=== PATIENT | female | born 1970 | race Caucasian/White ===

== ENCOUNTER 2022-05-19 11:04 | Outpatient (CLI) | payer OTHER, SELFPAY ==
--- NOTE | 2022-05-19 11:30 | CRLHL7_ITS ---
For Patients: As a result of the Century Cures Act, medical imaging exams and procedure reports are released immediately into your electronic medical record. You may view this report before your referring provider. If you have questions, please contact your health care provider. BILATERAL SCREENING MAMMOGRAM WITH COMPUTER-AIDED DETECTION AND TOMOSYNTHESIS TECHNIQUE: CC and MLO views were obtained. These mammographic images have been obtained using full-field digital technique. These mammographic images were interpreted with the benefit of computer-aided detection. Breast Tomosynthesis was used in this interpretation. COMPARISON FILM: 07/30/2020, 05/05/2016, 08/06/2014. FINDINGS: There are scattered areas of fibroglandular density IMPRESSION: There is no radiographic evidence for malignancy. ASSESSMENT: BI-RADS Category 1: Negative RECOMMENDATION: Routine screening mammogram in 1 year. A lay language report of this examination will be provided to the patient. Jerman Banda M.D. Diagnostic Radiologist [email or web address] CORRIE/sakina presley/Dictated by: Jerman Banda MD @ 05/19/2022 12:20:00 PM (Electronically Signed)
== END 2022-05-19 11:05 | disposition home or self-care (01) ==
LOC: MAMMO 11:06
PROVIDERS: Visit Provider Family Medicine
DX: Z12.31 Encounter for screening mammogram for malignant neoplasm of breast (principal)
CPT/HCPCS: 77063; 77067

== ENCOUNTER 2023-08-12 07:50 | Outpatient (CLI) | payer MEDICAID, SELFPAY ==
--- NOTE | 2023-08-12 08:34 | W.ANESCHARGE ---
Anesthesia Charges Start Date/Time Anesthesia Start Date: 08/12/23 Anesthesia Start Time: 08:25 Stop Date/Time Anesthesia Stop Date: 08/12/23 Anesthesia Stop Time: 08:49
--- NOTE | 2023-08-12 08:52 | W.ANESCHARGE ---
Anesthesia Charges Start Date/Time Anesthesia Start Date: 08/12/23 Anesthesia Start Time: 08:25 Stop Date/Time Anesthesia Stop Date: 08/12/23 Anesthesia Stop Time: 08:49
== END 2023-08-12 07:51 | disposition home or self-care (01) ==
LOC: OP CLINIC 07:50
PROVIDERS: PCP Family Medicine; Visit Provider Internal Medicine
DX: Z12.11 Encounter for screening for malignant neoplasm of colon (principal)
CPT/HCPCS: 00811; 00812; 45378; J2405; J2704

== ENCOUNTER 2023-09-26 08:14 | Outpatient (CLI) | payer MEDICAID, SELFPAY | END 2023-09-26 08:15 | disposition home or self-care (01) | LOC: NFLDREF 09-27 10:31 | PROVIDERS: PCP Family Medicine; Referring Provider Family Medicine; Visit Provider Family Medicine | DX: Z00.00 Encounter for general adult medical examination without abnormal findings (principal); Z13.6 Encounter for screening for cardiovascular disorders | CPT/HCPCS: 80053; 80061 ==

== ENCOUNTER 2024-02-01 18:01 | Outpatient (CLI) | payer MEDICAID, SELFPAY ==
--- OUTSIDE RECORDS SUMMARY | 2024-02-01 18:02 | XMS_ITS | Clinical Summary ---
Author Name Unknown Organization [employer] [facility] Address [place], [place] [address] Care Team Providers Care Telecommunications Administrator Name Role Phone Sasha Rodriguez MD Primary Care Provider +1- [phone] Allergies No known active allergies Medications Medication Sig Dispensed Refills Start Date End Date Status buPROPion (WELLBUTRIN XL) 300 mg Extended-Release tablet Take 300 mg by mouth once daily. Active estradioL (ESTRACE) 0.01% (0.1 mg/g) vaginal creamIndications:Cys tocele with prolapse Pea size on a finger to the vagina at bedtime for one month 42 g 07/22/2021 Active acetaminophen-codein e (TYLENOL #3) 300-30 mg per tabletIndications:Cy stocele with prolapse Take 1 Tablet by mouth every 6 hours if needed for Pain. Max acetaminophen dose: 4000mg in 24 hrs. 10 Tablet 2021 Active ondansetron (ZOFRAN ODT) 8 mg disintegrating tabletIndications:Cy stocele with prolapse Place 1 Tablet (8 mg) on the tongue every 8 hours if needed for Nausea/Vomiting. 8 Tablet 2021 Active Active Problems Problem Noted Date Diagnosed Date Cystocele with prolapse 2021 Lateral epicondylitis 08/16/2014 Possible seronegative RA 07/19/2014 Herniated cervical disc, C5-6 and C6-7. 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 Von Willebrand's disease 03/22/2012 Overview: Type I Fibroids 03/22/2012 Immunizations Name Administration Dates Next Due Influenza RIV4 (Age 18+ Years) PRESERV FREE 06/18 Influenza, IIV3 (Age 6-35 mos) 08/08/2014 Influenza, IIV4 08/06/2020 Pneumococcal Poly,23-Valent (Pneumovax) 08/08/20 14 Tdap 07/15/2021,05/22/2009 Family History Medical History Relation Name Comments Anorexia nervosa Daughter Diabetes Maternal Grandfather Stroke Maternal Grandfather Heart Disease Maternal Grandmother Cancer-ovarian Mother Cervical cancer Mother Depression Mother Heart Disease Mother Hypertension Mother Other Other marfans - grand father Cancer-colon Paternal Grandmother Relation Name Status Comments Daughter Maternal Grandfather Maternal Grandmother Mother Other Paternal Grandmother Social History Tobacco Use Types Packs/Day Years Used Date Smoking Tobacco: Never Smokeless Tobacco: Never Tobacco Cessation:Counseling Given: Yes Alcohol Use Standard Drinks/Week Comments Yes 0 (1 standard drink = 0.6 oz pur e alcohol) occassionally Social Connections Answer Date Recorded Frequency of Communication with Friends and Fami ly Not on file 10/17/2021 Financial Resource Strain Answer Date R ecorded Difficulty of Paying Living Expenses Not on file 10/17/2021 Difficulty of Paying Living Expenses Not on file 10/17/2021 Sex and Gender Information Value Date Recorded Sex Assigned at Not on file Gender Identity Not on file Sexual Orientation Not on file Obstetrics History Last Filed Vital Signs Vital Sign Reading Time Taken Comments Blood Pressure 124/83 09/28/2021 1:27 PM DESK REPRESENTATIVE Pulse 74 09/28/2021 1:27 PM DESK REPRESENTATIVE Temperature 37.3 ??C (99.2 ??F) 2021 3:30 PM CD T Respiratory Rate 16 2021 3:30 PM CDT Oxygen Saturation 99% 09/28/2021 1:27 PM DESK REPRESENTATIVE Inhaled Oxygen Concentration - - Weight 65.3 kg (144 lb) 09/28/2021 1:27 PM DESK REPRESENTATIVE Height 162.6 cm (5' 4) 07/22/2021 6:10 AM CDT Body Mass Index 24.72 07/22/2021 6:10 AM CDT Plan of Treatment Health Maintenance Due Date Last Done Comments Depression screening for age 12+ 1980 HIV for age 15-65 1983 BMI (ht and wt on same day) for age 18+ 1986 Hepatitis C screening for age 18-79 1986 Colonoscopy through age 75 2013 Lipids for age 45-75 2013 Mammogram for age 45-75 2013 Zoster (shingles) series for age 50+ (1 of 2) 2018 COVID-19 vaccine series (2022-24 season) 2023 02/25/2021, 02/04/2021 Influenza for age 50-64 06/17/2024 07/15/2021, 08/06 Pap test for age 21-65 09/30/2026 , 09/30/2023, 03/05/2021, Additional history exists Tetanus booster 07/15/2031 07/15/2021, 05/22/2009 Pneumococcal series for age 6-64 Aged Out 08/08/2014 No longer eligible based on patient's age to complete this topic Tdap Completed 07/15/2021, 05/22/2009 Medical Devices Implanted Type Area Drill Operator Pneumatic Device Identifier Shelf Expiration Date Model / Serial / Lot Mesh Pelvic 24x4cm Restorelle Y Prolapse - [id number] Implanted:Qty: 1 on 07/22/2021 by Augusta Christianson MD at [facility] N/A: Pelvis [employer] 07/21/2023 [id number] / / [id number] Description:See implant shee t Sling Pelvic Obtryx Ii Halo Continence - [id number] Implanted:Qty: 1 on 07/22/2021 by Augusta Christianson MD at [facility] N/A: Pelvis [facility] [place] [facility] [id number] / / [id number] Procedures Procedure Name Priority Date/Time Associated Diagnosis Comments HPV THIN PREP Routine 09/30/2023 1:30 PM DESK REPRESENTATIVE from Last 3 Months or Most Recently Relevant to Health Maintenance Results * HPV HIGH RISK (09/30/2023 1:30 PM DESK REPRESENTATIVE) TYPE 16 Negative Negative 10/11/2023 2:10 PM DESK REPRESENTATIVE [facility] TYPE 18 Negative Negative 10/11/2023 2:10 PM DESK REPRESENTATIVE [facility] OTHER HIGH RISK TYPES Negative Negative 10/11/2023 2:10 PM DESK REPRESENTATIVE [facility] Other (Cervical) 09/30/2023 1:30 PM DESK REPRESENTATIVE 10/06/2023 4:55 PM DESK REPRESENTATIVE Narrative [facility] - 10/11/2023 2:10 PM DESK REPRESENTATIVE HPV types 16, 18, 31, 33, 35, 39, 45, 51, 52, 56, 58, 59, 66 and 68 DNA were undetectable or below the pre-set threshold. Methodology: Moises Soila 4800 HPV Test Doctor Unknown [facility] [address] [place] [id number], from Last 3 Months or Most Recently Relevant to Health Maintenance Advance Directives * Full Code (Latest Code Status on File) Date Activated Date Inactivated Comments 07/22/2021 5:50 AM 2021 7:23 PM Question Answer Comments Code Status Discussion: Not Discussed * Full Code Date Activated Date Inactivated Comments 03/22/2012 11:08 AM 03/23/2012 4:00 PM * Full Code Date Activated Date Inactivated Comments 03/22/2012 6:05 AM 03/22/2012 11:08 AM Care Teams Telecommunications Administrator Relationship Specialty Start Date End Date Sasha Rodriguez MD [address] [place] [address] PCP - General Internal Medicine 12/13/03
== END 2024-02-01 18:02 | disposition home or self-care (01) ==
LOC: NFLDUCREF 18:01
PROVIDERS: PCP Family Medicine; Visit Provider Nurse Practitioner
DX: M62.830 Muscle spasm of back (principal)
CPT/HCPCS: 87086

== ENCOUNTER 2024-02-16 08:44 | Outpatient (CLI) | payer MEDICAID, SELFPAY ==
--- OUTSIDE RECORDS SUMMARY | 2024-02-16 08:47 | XMS_ITS | Clinical Summary ---
Author Name Unknown Organization [employer] [facility] Address [place], [place] [address] Care Team Providers Care Neurological Surgeon Name Role Phone Sasha Rodriguez MD Primary Care Provider +1- [phone] Allergies No known active allergies Medications Medication [...] Comments Blood Pressure 124/83 09/28/2021 1:27 PM VOCAL PERFORMER Pulse 74 09/28/2021 1:27 PM VOCAL PERFORMER Temperature 37.3 ??C (99.2 ??F) 2021 3:30 PM CD T Respiratory Rate 16 2021 3:30 PM CDT Oxygen Saturation 99% 09/28/2021 1:27 PM VOCAL PERFORMER Inhaled Oxygen Concentration - - Weight 65.3 kg (144 lb) 09/28/2021 1:27 PM VOCAL PERFORMER Height 162.6 cm (5' 4) 07/22/2021 6:10 [...] 07/15/2021, 05/22/2009 Medical Devices Implanted Type Area Addiction Professional Device Identifier Shelf Expiration Date Model / Serial / Lot Mesh Pelvic 24x4cm Restorelle Y Prolapse - [id number] Implanted:Qty: 1 on 07/22/2021 by Augusta Christianson MD at [facility] N/A: Pelvis [employer] 07/21/2023 [id number] / / [id number] Description:See implant shee t Sling Pelvic Obtryx Ii Halo Continence - [id number] Implanted:Qty: 1 on 07/22/2021 by Augusta Christianson MD at [facility] N/A: Pelvis [facility] [place] [facility] [id number] / / [id number] Procedures Procedure Name Priority Date/Time Associated Diagnosis Comments HPV THIN PREP Routine 09/30/2023 1:30 PM VOCAL PERFORMER from Last 3 Months or Most Recently Relevant to Health Maintenance Results * HPV HIGH RISK (09/30/2023 1:30 PM VOCAL PERFORMER) TYPE 16 Negative Negative 10/11/2023 2:10 PM VOCAL PERFORMER [facility] TYPE 18 Negative Negative 10/11/2023 2:10 PM VOCAL PERFORMER [facility] OTHER HIGH RISK TYPES Negative Negative 10/11/2023 2:10 PM VOCAL PERFORMER [facility] Other (Cervical) 09/30/2023 1:30 PM VOCAL PERFORMER 10/06/2023 4:55 PM VOCAL PERFORMER Narrative [facility] - 10/11/2023 2:10 PM VOCAL PERFORMER HPV types 16, 18, 31, 33, 35, 39, 45, 51, 52, 56, 58, 59, 66 and 68 DNA were undetectable or below the pre-set threshold. Methodology: Moises Soila 4800 HPV Test Doctor Unknown [facility] [address] [place] [id number], from Last 3 Months or Most Recently [...] 6:05 AM 03/22/2012 11:08 AM Care Teams Neurological Surgeon Relationship Specialty Start Date End Date Sasha Rodriguez MD [address] [place] [address] PCP - General Internal Medicine 12/13/03
== END 2024-02-16 08:45 | disposition home or self-care (01) ==
LOC: NFLDREF 08:45
PROVIDERS: PCP Family Medicine; Visit Provider Family Medicine
DX: N02.8 Recurrent and persistent hematuria with other morphologic changes (principal); M89.8X8 Other specified disorders of bone, other site
CPT/HCPCS: 80053; 87086

== ENCOUNTER 2024-04-06 10:00 | Outpatient (CLI) | payer OTHER, SELFPAY ==
--- OUTSIDE RECORDS SUMMARY | 2024-04-06 10:03 | XMS_ITS | Clinical Summary ---
Author Organization [employer] [facility] Address [place], [place] [address] Care Team Providers Care Animal Breeder Name Role Phone Sasha Rodriguez MD Primary Care Provider +1- [phone] Allergies No known active allergies Medications Medication [...] Comments Blood Pressure 124/83 09/28/2021 1:27 PM NUMBERER AND WIRER Pulse 74 09/28/2021 1:27 PM NUMBERER AND WIRER Temperature 37.3 ??C (99.2 ??F) 2021 3:30 PM CD T Respiratory Rate 16 2021 3:30 PM CDT Oxygen Saturation 99% 09/28/2021 1:27 PM NUMBERER AND WIRER Inhaled Oxygen Concentration - - Weight 65.3 kg (144 lb) 09/28/2021 1:27 PM NUMBERER AND WIRER Height 162.6 cm (5' 4) 07/22/2021 6:10 [...] (1 of 2) 2018 COVID-19 vaccine series (2022- season) 2023 02/25/2021, 02/04/2021 Influenza for age 50-64 06/17/2024 07/15/2021, 08/06 Pap test for age 21-65 09/30/2026 , 09/30/2023, 03/05/2021, Additional history exists Tetanus booster 07/15/2031 07/15/2021, 05/22/2009 Pneumococcal series for age 6-64 Aged Out 08/08/2014 No longer eligible based on patient's age to complete this topic Tdap Completed 07/15/2021, 05/22/2009 Medical Devices Implanted Type Area Sanding Machine Tender Device Identifier Shelf Expiration Date Model / Serial / Lot Mesh Pelvic 24x4cm Restorelle Y Prolapse - [id number] Implanted:Qty: 1 on 07/22/2021 by Augusta Christianson MD at [facility] N/A: Pelvis [employer] 07/21/2023 [id number] / / [id number] Description:See implant shee t Sling Pelvic Obtryx Ii Halo Continence - [id number] Implanted:Qty: 1 on 07/22/2021 by Augusta Christianson MD at [facility] N/A: Pelvis [facility] [place] [facility] [id number] / / [id number] Procedures Procedure Name Priority Date/Time Associated Diagnosis Comments HPV THIN PREP Routine 09/30/2023 1:30 PM NUMBERER AND WIRER from Last 3 Months or Most Recently Relevant to Health Maintenance Results * HPV HIGH RISK (09/30/2023 1:30 PM NUMBERER AND WIRER) TYPE 16 Negative Negative 10/11/2023 2:10 PM NUMBERER AND WIRER [facility] TYPE 18 Negative Negative 10/11/2023 2:10 PM NUMBERER AND WIRER [facility] OTHER HIGH RISK TYPES Negative Negative 10/11/2023 2:10 PM NUMBERER AND WIRER [facility] Other (Cervical) 09/30/2023 1:30 PM NUMBERER AND WIRER 10/06/2023 4:55 PM NUMBERER AND WIRER Narrative [facility] - 10/11/2023 2:10 PM NUMBERER AND WIRER HPV types 16, 18, 31, 33, 35, 39, 45, 51, 52, 56, 58, 59, 66 and 68 DNA were undetectable or below the pre-set threshold. Methodology: Moises Soila 4800 HPV Test Doctor Unknown [facility] [address] [place] [id number], from Last 3 Months or Most Recently [...] 6:05 AM 03/22/2012 11:08 AM Care Teams Animal Breeder Relationship Specialty Start Date End Date Sasha Rodriguez MD [address] [place] [id number] PCP - General Internal Medicine 12/13/03
[2024-04-06 10:05] LABS: Appearance Urine Clear (Clear); Bilirubin Urine Negative (Negative); Blood Urine Trace-intact (Negative); Color Urine Yellow (Yellow); Glucose Urine Negative (Negative); Ketones Urine Negative (Negative); Leukocyte Esterase Urine Negative (Negative); Nitrite Urine Negative (Negative); Protein Urine Negative (Negative); Urobilinogen Urine 0.2 (0.2-1.0)
[2024-04-06 10:08] LABS: RBC Urine 0-2 (0-2); Squamous Epithelial Cell Urine Few (None-Few); WBC Urine 0-2 (0-5)
== END 2024-04-06 10:01 | disposition home or self-care (01) ==
PROVIDERS: PCP Family Medicine; Visit Provider Obstetrics & Gynecology
DX: R10.2 Pelvic and perineal pain (principal)
CPT/HCPCS: 81001; 84443; 87086

== ENCOUNTER 2024-04-13 08:32 | Outpatient (CLI) | payer OTHER, SELFPAY ==
--- OUTSIDE RECORDS SUMMARY | 2024-04-13 08:35 | XMS_ITS | Clinical Summary ---
Author Organization [employer] [facility] Address [place], [place] [address] Care Team Providers Care Veterinary Technician Assistant Name Role Phone Sasha Rodriguez MD Primary Care Provider [phone]- [phone] Allergies No known active allergies Medications Medication [...] Comments Blood Pressure 124/83 09/28/2021 1:27 PM CATALYST OPERATOR GASOLINE Pulse 74 09/28/2021 1:27 PM CATALYST OPERATOR GASOLINE Temperature 37.3 ??C (99.2 ??F) 2021 3:30 PM CD T Respiratory Rate 16 2021 3:30 PM CDT Oxygen Saturation 99% 09/28/2021 1:27 PM CATALYST OPERATOR GASOLINE Inhaled Oxygen Concentration - - Weight 65.3 kg (144 lb) 09/28/2021 1:27 PM CATALYST OPERATOR GASOLINE Height 162.6 cm (5' 4) 07/22/2021 6:10 [...] 07/15/2021, 05/22/2009 Medical Devices Implanted Type Area Wood Drilling Machine Operator Device Identifier Shelf Expiration Date Model / Serial / Lot Mesh Pelvic 24x4cm Restorelle Y Prolapse - [id number] Implanted:Qty: 1 on 07/22/2021 by Augusta Christianson MD at [facility] N/A: Pelvis [employer] 07/21/2023 [id number] / / [id number] Description:See implant shee t Sling Pelvic Obtryx Ii Halo Continence - [id number] Implanted:Qty: 1 on 07/22/2021 by Augusta Christianson MD at [facility] N/A: Pelvis [facility] [id number] / / [id number] Procedures Procedure Name Priority Date/Time Associated Diagnosis Comments HPV THIN PREP Routine 09/30/2023 1:30 PM CATALYST OPERATOR GASOLINE from Last 3 Months or Most Recently Relevant to Health Maintenance Results * HPV HIGH RISK (09/30/2023 1:30 PM CATALYST OPERATOR GASOLINE) TYPE 16 Negative Negative 10/11/2023 2:10 PM CATALYST OPERATOR GASOLINE [facility] TYPE 18 Negative Negative 10/11/2023 2:10 PM CATALYST OPERATOR GASOLINE [facility] OTHER HIGH RISK TYPES Negative Negative 10/11/2023 2:10 PM CATALYST OPERATOR GASOLINE [facility] Other (Cervical) 09/30/2023 1:30 PM CATALYST OPERATOR GASOLINE 10/06/2023 4:55 PM CATALYST OPERATOR GASOLINE Narrative [facility] - 10/11/2023 2:10 PM CATALYST OPERATOR GASOLINE HPV types 16, 18, 31, 33, 35, 39, 45, 51, 52, 56, 58, 59, 66 and 68 DNA were undetectable or below the pre-set threshold. Methodology: Moises Soila 4800 HPV Test Doctor Unknown MICROBIOLOGY [facility] [address] [place] [id number], from Last 3 Months or Most Recently [...] 6:05 AM 03/22/2012 11:08 AM Care Teams Veterinary Technician Assistant Relationship Specialty Start Date End Date Sasha Rodriguez MD [address] [place] [id number] PCP - General Internal Medicine 12/13/03
--- OUTSIDE RECORDS SUMMARY | 2024-04-13 08:35 | XMS_ITS | Data Portability ---
Author Organization [place] [facility] Address [address] [place] [address] Care Team Providers Care Crepe Box Tender Name Role Phone [facility] Primary Care Provider Assessment No assessment recorded. Plan of Treatment Reminders Order Date Submit Date Provider Last Modified By Organization Details Last Modified Time Details Appointments None recorded. Lab urinalysis, dipstick 2020 021 [email or web address] Not available 09:10:48 Referral None recorded. Procedures None recorded. Surgeries robotic sacrocolpop exy w/mesh insertion (SURG) 2020 021 [email or web address] Not available 16:17:39 Imaging None recorded. Medication Orders None recorded. Patient TargetsNo targets recorded. Patient InstructionsNo instructions recorded. Reason for Referral None Reported. Results Created Date Observation Date Name Description Value Unit Range Abnormal Flag LastModifiedBy Organization Detail LastModifiedTime 05/14/2021 urina lysis , dipst ick pH-Status 5.5 Not Available [facility] [address], [place], [address], 05/14/2021 09:10:26 05/14/2021 urina lysis , dipst ick Blood-Status Trace Not Available [facility] [address], [place], [address], 05/14/2021 09:10:26 05/14/20 21 05/14/2021 bladd er scan (PROC ) No observ ation record ed. BARCODE Not Available 05/14/2021 14:24:40 Result Notes None recorded. Procedures Surgical History Date Name Laterality Status Provider Name and Address Organization Details Recorded Time 09/17/20 21 Bladder Scan completed Sumaya Carney [facility] 09/17/2021 14:04:55 05/14/20 21 CystoscopyFemale completed Shilpi sanon [facility] 05/14/2021 09:16:11 05/14/20 21 Bladder Scan completed Shilpi sanon [facility] 05/14/2021 09:10:22 Colonoscopy completed Sumaya Carney [facility] 09/17/2021 14:03:29 Imaging Results Imaging Date Name Status LastModified by Organiz ation Details LastModified Time 05/14/2021 bladder scan (PROC) completed BARCODE Information not available 05/14/2021 14:24:40 Procedure Notes None recorded. Medical Equipment None Reported. Allergies No known drug allergies Medications Name Sig Start Date Stop Date Status Note LastModified by Organization Details LastModified Time acetaminophen 300 mg-codeine 30 mg tablet active Not Available Not Available Not Available ciprofloxacin 500 mg tablet active Not Available Not Availabl e Not Available ondansetron 8 mg disintegrating tablet active Not Available Not Available Not Available docusate sodium 100 mg capsule active Not Available Not Availab le Not Available estradiol 0.01% (0.1 mg/gram) vaginal cream active Not Available Not Availabl e Not Available bupropion HCl XL 300 mg 24 hr tablet, extended release TAKE 1 TABLET BY MOUTH EVERY DAY active Not Available Not Available No t Available bupropion HCl XL 150 mg 24 hr tablet, extended release TAKE 1 TABLET BY MOUTH EVERY DAY active Not Available Not Available No t Available Vitals Date Recorded Body height Body mass index (BMI) Body weight Provider Name and Address Organization Details Last Updated DateTime 05/14/2021 162.56 cm 24.4 kg/m2 88413.12 g Shilpigary Dickersonoso [facility] 05/14/2021 09:08:48 Date Recorded Body height Body mass index (BMI) Body weight Provider Name and Address Organization Details Last Updated DateTime 09/17/2021 162.56 cm 24 kg/m2 13099.93 g Sumaya Carney [facility] 09/17/2021 14:01:59 Social History Question Answer Notes LastModified by Organizat ion Details LastModified Time Tobacco Smoking Status Never Smoker [facility] 05/14/2021 09:09:06 What Is Your Level Of Alcohol Consumption? Occasional [email or web address] Information not available 09/17/2021 What Is Your Level Of Caffeine Consumption? Occasional [email or web address] Information not available 09/17/2021 Number Of Pregnancies 2 [email or web address] Information not available 09/17/2021 Number Of Vaginal Deliveries 2 [email or web address] Information not available 09/17/2021 Could You Be ? No [email or web address] Information not available 09/17/2021 What Was The Date Of Your Most Recent Tobacco Screening? 09/17/2021 [email or web address] Information not available 09/17/2021 What Is Your Relationship Status? [email or web address] Information not available 09/17/2021 Do You Use Any Illicit Or Recreational Drugs? No [email or web address] Information not available 09/17/2021 Do You Or Have You Ever Used Any Other Forms Of Tobacco Or Nicotine? No [email or web address] Information not available 09/17/2021 Sex: Unknown Functional Status None recorded. Mental Status None recorded. Family History Nothing Reported. Medical History Condition Response Diabetes N Sexually Transmitted Infection N Bleeding Disorder Y High Blood Pressure N Kidney Stones N Cancer N Depression Y Lung Disease N High Cholesterol N GERD/Acid Reflux N Heart Disease N Gynecological History Statement/Question Response Sexually Active? Y Obstetrics History GPAL:G 2 P 0 0 0 2 Type Value Living 2 Total 2 Past Encounters Encounter ID Performer Location Encounter Start Date Encounter Closed Date Diagnosis/Indication Diagnosis SNOMED-CT Code [id number] Augusta Christianson MD [facility] [address] [place] [address] 05/14/2021 08:31:12 05/15/2021 14:37:26 Cystocele [id number] Augusta Christianson MD [facility] [address] [place] [id number] 09/17/2021 13:51:16 09/17/2021 14:24:01 Prolapse of female genital organs [id number] Health Concerns Section Related Observation LastModified by Organization Detai ls LastModified Time None Recorded Concern Status LastModified by Organization Details LastModified Time None Recorded Advance Directives Directive None Recorded Payers Encounter Date Sequence Insurance Name Policy Number Policy Ramirez Covered Member ID Ramirez Member ID Guarantor Name 05/14/2021 1 [employer] Aylin Thao [id number] Aylin Thao 09/17/2021 1 [employer] - [employer] (PPO) [employer]B Aylin Thao [id number] Aylin Thao Notes Date Note Type Note Provider Name and Address Organization Details Recorded Time 05/14/2021 text/html HPI Notes: Kiran coelho is a pt of DR. Don here for POP. She noticed a pelvic bulge all the time; more noticeable in the past months. She Had supracervical hyst in 2009 in [place]. Unsure why cervix was left. She has had an abnl Pap since then, but Pap in February 2021 was normal, negative HPV. Urinary freq & urgency bother her, but no leakage, getting worse. She has no stress incotinence. She has Vonwillebrand disease. Very stressed about the vaginal bulge, has a hard time thinking about it. She has cystocele grade 3; mild cervical prolapse She has weakly positive stress test positive with hypermobile bladder neck. Augusta Christianson MD [address] [place] [address],[address], [address], [facility] 05/14/2021 10:21:50 09/17/2021 text/html HPI Notes: sp sacro/sling on 07/22/21 cystocele grade 3; mild cervical prolapse She had COVID after her surgery. PVR is 120cc. Augusta Christianson MD [address] [place] [address],[address], [place], [address], [facility] 09/17/2021 14:21:01 OBGyn Episode No OBEpisode recorded.
--- NOTE | 2024-04-13 08:45 | CRLHL7_ITS ---
For Patients: As a result of the Century Cures Act, medical imaging exams and procedure reports are released immediately into your electronic medical record. You may view this report before your referring provider. If you have questions, please contact your health care provider. BILATERAL SCREENING MAMMOGRAM WITH COMPUTER-AIDED DETECTION AND TOMOSYNTHESIS TECHNIQUE: CC and MLO views were obtained. These mammographic images have been obtained using full-field digital technique. These mammographic images were interpreted with the benefit of computer-aided detection. Breast Tomosynthesis was used in this interpretation. COMPARISON FILM: 05/19/22, 07/30/20, 05/05/16. FINDINGS: There are scattered areas of fibroglandular density. IMPRESSION: There is no radiographic evidence for malignancy. ASSESSMENT: BI-RADS Category 1: Negative RECOMMENDATION: Routine screening mammogram in 1 year. A lay language report of this examination will be provided to the patient. Jerman Banda M.D. Diagnostic Radiologist [email or web address] SP/Dictated by: Jerman Banda MD @ 04/18/2024 1:06:00 PM (Electronically Signed)
== END 2024-04-13 08:33 | disposition home or self-care (01) ==
LOC: MAMMO 08:33
PROVIDERS: PCP Family Medicine; Visit Provider Family Medicine
DX: Z12.31 Encounter for screening mammogram for malignant neoplasm of breast (principal)
CPT/HCPCS: 77063; 77067

== ENCOUNTER 2024-05-02 09:00 | Outpatient (RCR) | payer OTHER, SELFPAY ==
--- NOTE | 2024-02-28 16:46 | PT.OPEX ---
PT [place] Outpatient Eval PT [facility] Outpatient Eval Start: 02/27/24 16:44 Freq: Status: Active Protocol: Document 02/27/24 16:45 RON (Rec: 02/27/24 16:46 RON [id number]) E-signed By Aylin Sood, PT Physical Therapy Outpatient Evaluation Insurance Information Recert Due Date 05/27/24 Insurance Name Medicaid,[employer]are Medical Diagnosis Dorsalgia M54.9 Treating Diagnosis Low back pain, pelvic floor dysfunction, bladder urgency, POP surgery c impaired pressure management, pelvic pain, dysparunia, FMS Referring Maria Victoria Bosch Subjective Subjective Pain with returning to stand after flexing forward to 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 She had pain that felt like buckeling to her, unable to stand erect . Has FMS, RA, kidney disease, endometriosis. She had some uterus left in her with the cervical tissue. She had a lot of physical responsibilities p hysterectomy and POP support . Abdomen is painful during intercourse. She takes Mg, Plexus, and eats clean to support tissues. 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 She feels bloaty in lower abdomen as the day goes on. Accupuncture every 3-4 weeks for joint pain. She has Bilat joint pain, L shoulder pain. Did not respond well to immunosuppressants. Pain Comments Global pain when laying down to sleep. Back pain with flexed forward and worse c return to tall standing. 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 Precautions Treatment Precautions/Contraindications IgA Nephropathy (kidney issues ), PTSD Therapy Limitations/Systems Review Not Limited Objective Other/Pertinent Objective PMH: Raynaud's syndrome, Von Willebrand factor (vWF) inhibitor disorder ,Other hemorrhagic disorder due to intrinsic circulating anticoagulants, antibodies, or inhibitors, Post-traumatic stress disorder, Inflammatory polyarthropathy , IgA nephropathy (1979), 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, Depression, Anxiety, vaginal delivery, tubal ligation (1996 ), sacrocolpopexy (2020), mandibular surgery (1981), hysterectomy (2011), endometrial ablation (2016), bilateral salpingectomy (2012) Functional Test Performed & Score ROM lumbar- ext 25% limited, L pain + Quadrant test Slump test + L>R caudal and cranial tension TA- poor lower activation Breathing- chest dominant diaphragm gripping Tender in R lower quadrant bladder hypermobile Reports bladder urgency hip ER limited L >R Hip IR strength 4- L, ER 3+ L Assessment Assessment/Impression Pt is a 53 yr old female c a h /o multiple pelvic/abdominal surgeries c back pain flare. She has impaired coordination and flexibility of deep core. She has impaired pressure management and pain in pelvis. She thinks she is having sx return of POP including impaired bladder emptying and heaviness in pelvis. Reports abdominal discomfort during intercourse. She has a h/o multiple joint pain and chronic pain, which will impact which positions she tolerates with exercises. Plan of Care Rehabilitation Potential Good Physical Therapy Goals Pt will report improved sensation of heaviness in pelvis with full days of activity by 50% in 8 weeks. Pt will be indep c pressure management c lifting techniques including breathing and posture to reduce strain on back and pelvic tissues. Pt will be indep c core connection progressions and principles in 8 weeks. Pt will report 50% improvement in post void dribble in 6 weeks. 1-2x/week for 12 weeks Coordination/Communication With Referral Source Patient Will Be Discharged From Therapy Completion of LTG(s),Skills Plateau,Independent w/HEP, Independently Progressing Evaluation Billing Untimed Code Treatment Minutes 45 PT Eval No Charge No Complexity High Certification Information Initial Certification Date 02/27/24 Ending Certification Date 05/27/24 Provider Signature Shows Agreement With POC & Medical Necessity Physician Signature & Date Requested Please Sign/Date Here Physician Comment/Change : Physician NPI Number #
--- NOTE | 2024-04-12 18:01 | PT.OPEX ---
PT [place] Outpatient Eval PT [facility] Outpatient Eval Start: 02/27/24 16:44 Freq: Status: Active Protocol: Document 04/12/24 08:58 RON (Rec: 04/12/24 13:02 RON [id number]) E-signed By Aylin Sood, PT Physical Therapy Outpatient Evaluation Insurance Information Insurance Name Medicaid,are Medical Diagnosis L shoulder pain, L shoulder weakness. Treating Diagnosis L shoulder impaired Subjective Subjective Shoulder ext/IR for donning lower extremity clothing. Supine with shoulder unsupported. Can carry weight close to body. Pushing motion to clean pool aggravates. Point specific pain on front of humerus. Forward reach is OK, lateral reach she can tolerate. No h/o of injections . She did have shoulder pop when sleeping on it, and it had more motion afterward. It' s more mobile but pain still present. She is R handed but bilat use with hair styling ( round brushing). Poor sleep patterns, arms fall asleep with no pattern of sleeping position. Max deep sleep is 24 min per Aura ring. 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 She is seeing a therapist as well and now looking into hormone care. Pain Comments 7-05/26 with specific movements . 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 Preferred Name Maria Victoria Precautions Treatment Precautions/Contraindications PTSD, anxiety, RA, Kidney disorder, menopausal, Raynaud' s, FMS Objective Other/Pertinent Objective Median ULTT+ bilat Hawkin's Juan Diego + L Neer's impingement + L Speed's Test +L drop arm test - pain c combined ext/IR of L shoulder Pain c ext beyond neutral on L TTP: R infraspinatus, UT, bicep's tendon, corocoid process, L first rib elevation and hypomobility THoracic hypomobility c T8 apex Functional Test Performed & Score PMH: Raynaud's syndrome, Von Willebrand factor (vWF) inhibitor disorder ,Other hemorrhagic disorder due to intrinsic circulating anticoagulants, antibodies, or inhibitors, Post-traumatic stress disorder, Inflammatory polyarthropathy , IgA nephropathy (1979), 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 She has multiple positive tests that are congruent c L RC impingement, infraspinatus hypertonic and tender. She has a very active upper body job. She does have ULTT + signs bilat as well. She has a significant h/o co-morbidities that may complicate and prolong progress. She has a job that would limit all income flow if she were to have RC surgery, so very motivated to complete conservative mgmt of shoulder injury. Plan of Care Rehabilitation Potential Good Physical Therapy Goals Pt will demonstrate increased L shoulder ROM to IR behind back to don LE clothing s pain in 10 weeks. Pt will demonstrate L shoulder activity of 10 min at shoulder height s shoulder pain in 10 weeks to complete functional tasks. Pt will demonstrate indep c HEP in order to progress gains made in therapy in 6 weeks. Pt will report 50% reduction in UE N/T with sleep in 10 weeks. Patient Will Be Discharged From Therapy Completion of LTG(s),Skills Plateau,Independent w/HEP, Independently Progressing Evaluation Billing Untimed Code Treatment Minutes 30 PT Eval No Charge No Complexity High Certification Information Initial Certification Date 04/12/24 Ending Certification Date 07/11/24 Provider Signature Required Yes Provider Signature Shows Agreement With POC & Medical Necessity Physician NPI Number Write NPI# Here Physician Comment/Change : Physician Signature & Date Requested Please Sign/Date Here
== END 2024-08-30 23:59 | disposition home or self-care (01) ==
PROVIDERS: PCP Family Medicine; Visit Provider Family Medicine
DX: M54.9 Dorsalgia, unspecified (principal); Z51.89 Encounter for other specified aftercare
CPT/HCPCS: 97110; 97112; 97140; 97163

== ENCOUNTER 2024-05-30 17:20 | Outpatient (CLI) | payer OTHER, SELFPAY ==
--- OUTSIDE RECORDS SUMMARY | 2024-05-30 17:23 | XMS_ITS | Clinical Summary ---
Author Organization [employer] [facility] [facility] Address [place], [place] [address] Care Team Providers Care Printed Circuit Layout Taper Name Role Phone Sasha Rodriguez MD Primary Care Provider +1- [phone] Allergies No known active allergies Medications Medication [...] disease 03/22/2012 Overview: Type I Fibroids 03/22/2012 Encounters Date Type Department Care Team Description 05/25/2024 4:01 PM CDT - 05/25/2024 5:48 PM CDT Emergency [facility] [address] [place] [address] Tyron Willams DO Paresthesia (Primary Dx) Discharge Disposition: Home Self Care 05/25/2024 Travel from Last 3 Months Immunizations Name Administration Dates Next Due Influenza [...] Sign Reading Time Taken Comments Blood Pressure 168/85 05/25/2024 3:38 PM CDT Pulse 65 05/25/2024 3:38 PM CDT Temperature 36.7 ??C (98.1 ??F) 05/25/2024 3:38 PM CD T Respiratory Rate 16 05/25/2024 3:38 PM CDT Oxygen Saturation 100% 05/25/2024 3:38 PM CDT Inhaled Oxygen Concentration - - Weight 65.2 kg (143 lb 12.8 oz) 05/25/2024 3:38 PM CDT Height 162.6 cm (5' 4) 05/25/2024 3:40 PM CDT Body Mass Index 24.68 05/25/2024 3:38 PM CDT Plan of Treatment Health Maintenance Due [...] 07/15/2021, 05/22/2009 Medical Devices Implanted Type Area Soda Dialyzer Device Identifier Shelf Expiration Date Model / Serial / Lot Mesh Pelvic 24x4cm Restorelle Y Prolapse - [id number] Implanted:Qty: 1 on 07/22/2021 by Augusta Christianson MD at [facility] N/A: Pelvis [employer] 07/21/2023 [id number] / / [id number] Description:See implant shee t Sling Pelvic Obtryx Ii Halo Continence - [id number] Implanted:Qty: 1 on 07/22/2021 by Augusta Christianson MD at [facility] N/A: Pelvis [facility] [id number] / / [id number] Procedures Procedure Name Priority Date/Time Associated Diagnosis Comments EKG 12 LEAD STAT 05/25/2024 5:42 PM CDT MAGNESIUM STAT 05/25/2024 4:40 PM CDT BASIC METABOLIC PANEL STAT 05/25/2024 4:40 PM CDT CBC W PLT NO DIFF STAT 05/25/2024 4:4 0 PM CDT MR HEAD BRAIN WO STAT 05/25/2024 4:31 PM CDT HPV THIN PREP Routine 09/30/2023 1:30 PM SINTER MACHINE OPERATOR from Last 3 Months or Most Recently Relevant to Health Maintenance Results * EKG 12 LEAD (05/25/2024 5:42 PM CDT) Pathologist [facility] Interpretation Sinus bradycardia Low voltage QRS Borderline ECG No previous ECGs available no stemi BEYOND NOW Ventricular Rate 57 BPM BEYOND NOW Atrial Rate 57 BPM BEYOND NOW P-R Interval 166 ms BEYOND NOW QRS Duration 82 ms BEYOND NOW QT 444 ms BEYOND NOW QTc 432 ms BEYOND NOW P [place] 47 degrees BEYOND NOW R [place] 27 degrees BEYOND NOW T [place] 28 degrees BEYOND NOW 05/25/2024 5:42 PM CDT 05/25/2024 7:05 PM CDT Tyron Willams DO EKG ORD BEYOND NOW [place], [place] * CBC W PLT NO DIFF (05/25/2024 4:40 PM CDT) WHITE BLOOD COUNT 7.7 4.5 - 11.0 thou/cu mm 05/25/2024 4:47 PM CDT [facility] RED BLOOD COUNT 4.34 4.00 - 5.20 mil/cu mm 05/25/2024 4:47 PM CDT [facility] HEMOGLOBIN 13.7 12.0 - 16.0 g/dL 05/25/2024 4:47 PM CDT [facility] HEMATOCRIT 39.8 33.0 - 51.0 % 05/25/2024 4:47 PM CDT [facility] MCV 92 80 - 100 fL 05/25/2024 4:47 PM CDT [facility] MCH 31.6 26.0 - 34.0 pg 05/25/2024 4:47 PM CDT [facility] MCHC 34.4 32.0 - 36.0 g/dL 05/25/2024 4:47 PM CDT [facility] RDW 13.6 11.5 - 15.5 % 05/25/2024 4:47 PM CDT [facility] PLATELET COUNT 336 140 - 440 thou/cu mm 05/25/2024 4:47 PM CDT [facility] MPV 9.1 6.5 - 11.0 fL 05/25/2024 4:47 PM CDT [facility] Blood BLOOD SPECIMEN / Unknown Butterfly / Unknown 05/25/2024 4:40 PM CDT 05/25/2024 4:43 PM CDT Tyron Willams DO HEMATOLOGY Performing Organization Address [facility]/ZIP Co de Phone Number [facility] [address] [place] [address] * MAGNESIUM (05/25/2024 4:40 PM CDT) Pathologist [facility] MAGNESIUM 2.2 1.6 - 2.6 mg/dL 05/25/2024 5:06 PM CDT [facility] Blood BLOOD SPECIMEN / Unknown Butterfly / Unknown 05/25/2024 4:40 PM CDT 05/25/2024 4:43 PM CDT Tyron Willams DO CHEMISTRY Performing Organization Address City/[facility]/ZIP Co de Phone Number [facility] [address] [place] [address] * (ABNORMAL) BASIC METABOLIC PANEL (05/25/2024 4:40 PM CDT) SODIUM 140 136 - 145 mmol/L 05/25/2024 5:06 PM CDT [facility] POTASSIUM 4.1 3.5 - 5.1 mmol/L 05/25/2024 5:06 PM [facility] CHLORIDE 102 98 - 107 mmol/L 05/25/2024 5:06 PM [facility] CO2,TOTAL 28 22 - 29 mmol/L 05/25/2024 5:06 PM [facility] ANION GAP 10 5 - 18 05/25/2024 5:06 PM [facility] GLUCOSE 94 70 - 99 mg/dL 05/25/2024 5:06 PM [facility] CALCIUM 9.8 8.6 - 10.0 mg/dL 05/25/2024 5:06 PM [facility] BUN 11 6 - 20 mg/dL 05/25/2024 5:06 PM [facility] CREATININE 0.92(H) 0.50 - 0.90 mg/dL 05/25/2024 5:06 PM [facility] BUN/CREAT RATIO 12 10 - 20 5:06 PM [facility] eGFR 74(L) >90 mL/min/1.7 3m2 05/25/2024 5:06 PM [facility] Comment:As of 2021, eG FR is calculated by the CKD-EPI creatinine equation without race adjustment. ??eGFR can be influenced by muscle mass, exercise, and diet. ??The reported eGFR is an estimation only and is only applicable if the renal function is stable. Blood BLOOD SPECIMEN / Unknown Butterfly / Unknown 05/25/2024 4:40 PM CDT 05/25/2024 4:43 PM CDT Tyron Willams DO CHEMISTRY [facility] [address] [place], [place] [id number] * MR HEAD BRAIN WO (05/25/2024 4:31 PM CDT) Anatomical Region Laterality Modality BRAIN, HEAD Magnetic Resonan ce 05/25/2024 4:44 PM CDT Narrative 05/25/2024 4:44 PM CDT For Patients: ??As a result of the Cures Act, medical imaging exams and procedure reports are released immediately into your electronic medical record. ??You may view this report before your referring provider. ??If you have questions, please contact your health care provider. Indication: Right-sided paresthesias. Technique: Multisequence multiplanar MRI of the brain without the use of intravenous contrast. Comparison: None available. Findings: No evidence of acute ischemia. Few scattered foci of T2 prolongation within the periventricular and subcortical white matter of both cerebral hemispheres, with dominant focus in the right periatrial white matter. No focus of abnormal susceptibility artifact. The ventricles are normal in size. Flow voids of the larger intracranial arteries are preserved. Bone marrow signal intensity of the calvarium is within normal limits. The orbits are unremarkable. The paranasal sinuses and mastoid air cells are clear. Impression: 1. No acute intracranial abnormality. Specifically, no evidence of acute ischemia. 2. Scattered foci of T2 prolongation within the supratentorial white matter of both cerebral hemispheres, nonspecific, but commonly seen in the setting chronic small vessel ischemic changes. Dictated by Tawanda Lara MD @ 05/25/2024 4:44:05 PM (Electronically Signed) Procedure Note Jovany Lara MD - 05/25/2024 For Patients: As a result of the Cures Act, medical imagingexams and procedure reports are released immediately into your electronicmedical record. You may view this report before your referring provider.If you have questions, please contact your health care provider. Indication: Right-sided paresthesias. Technique: Multisequence multiplanar MRI of the brain without the use of intravenouscontrast. Comparison: None available. Findings: No evidence of acute ischemia. Few scattered foci of T2 prolongationwithin the periventricular and subcortical white matter of both cerebralhemispheres, with dominant focus in the right periatrial white matter. Nofocus of abnormal susceptibility artifact. The ventricles are normal in size. Flow voids of the larger intracranialarteries are preserved. Bone marrow signal intensity of the calvarium is within normal limits. Theorbits are unremarkable. The paranasal sinuses and mastoid air cells areclear. Impression: 1. No acute intracranial abnormality. Specifically, no evidence of acuteischemia. 2. Scattered foci of T2 prolongation within the supratentorial whitematter of both cerebral hemispheres, nonspecific, but commonly seen in thesetting chronic small vessel ischemic changes. Dictated by Tawanda Lara MD @ 05/25/2024 4:44:05 PM (Electronically Signed) Tyron Willams DO MR * HPV HIGH RISK (09/30/2023 1:30 PM SINTER MACHINE OPERATOR) TYPE 16 Negative Negative 10/11/2023 2:10 PM SINTER MACHINE OPERATOR [facility] TYPE 18 Negative Negative 10/11/2023 2:10 PM SINTER MACHINE OPERATOR [facility] OTHER HIGH RISK TYPES Negative Negative 10/11/2023 2:10 PM SINTER MACHINE OPERATOR [facility] Other (Cervical) 09/30/2023 1:30 PM SINTER MACHINE OPERATOR 10/06/2023 4:55 PM SINTER MACHINE OPERATOR Narrative [facility] - 10/11/2023 2:10 PM SINTER MACHINE OPERATOR HPV types 16, 18, 31, 33, 35, 39, 45, 51, 52, 56, 58, 59, 66 and 68 DNA were undetectable or below the pre-set threshold. Methodology: Moises Soila 4800 HPV Test Doctor Unknown [facility] [address] [place] [address], from Last 3 Months or Most Recently [...] 6:05 AM 03/22/2012 11:08 AM Care Teams Printed Circuit Layout Taper Relationship Specialty Start Date End Date Sasha Rodriguez MD [address] [place] [address] PCP - General Internal Medicine 12/13/03
--- NOTE | 2024-05-30 17:30 | CRLHL7_ITS ---
For Patients: As a result of the Cures Act, medical imaging exams and procedure reports are released immediately into your electronic medical record. You may view this report before your referring provider. If you have questions, please contact your health care provider. INDICATION: Paresthesia of skin. TECHNIQUE: The carotid circulations and the vertebral arteries in the neck were examined with newby-scale ultrasound, color-flow and Doppler spectral analysis. Degrees of stenosis were determined using SRU 2002 Consensus Panel Criteria. COMPARISON: None. FINDINGS: Multiple sonographic images with newby-scale, color Doppler and spectral Doppler analysis were obtained demonstrate visualized atherosclerotic plaque in the carotid arteries bilaterally. Velocities are within normal limits bilaterally. The right ICA/CCA ratio is 1.0 and the left ICA/CCA ratio is 0.9. Spectral waveforms are normal. Both vertebral arteries are antegrade. IMPRESSION: 1. Bilateral carotid artery atherosclerosis. 2. Estimated stenosis in the right internal carotid artery is less than 50% by SRU 2002 Consensus Panel Criteria. 3. Estimated stenosis in the left internal carotid artery is less than 50% by SRU 2002 Consensus Panel Criteria. Dictated by Elkin Heart MD @ 06/01/2024 12:50:23 AM (Electronically Signed)
== END 2024-05-30 17:21 | disposition home or self-care (01) ==
PROVIDERS: PCP Family Medicine; Visit Provider Family Medicine
DX: R20.2 Paresthesia of skin (principal); I65.23 Occlusion and stenosis of bilateral carotid arteries
CPT/HCPCS: 93880

== ENCOUNTER 2024-07-11 09:56 | Outpatient (CLI) | payer OTHER, SELFPAY ==
--- OUTSIDE RECORDS SUMMARY | 2024-07-11 10:03 | XMS_ITS | Clinical Summary ---
Author Organization [facility] [facility] Address [place], [place] [address] Care Team Providers Care Cdl Team Truck Driver Name Role Phone Sasha Rodriguez MD Primary Care Provider [phone] Allergies No known active allergies Medications Medication [...] nephrotic syndrome 07/19/2014 Von Willebrand's disease 03/22/2012 Overview (03/22/2012): Type I Fibroids 03/22/2012 Encounters Date Type Department Care Team Description 05/25/2024 4:01 PM CDT - 05/25/2024 5:48 PM CDT Emergency [facility] [address] [place] [address] Tyron Willams DO Paresthesia (Primary Dx) Discharge [...] (1 of 2) 2018 COVID-19 vaccine series ( season) 2024 02/25/2021, 02/04/2021 Influenza for age 50-64 06/17/2024 07/15/2021, 08/06 Pap test for age 21-65 09/30/2026 , 09/30/2023, 03/05/2021, Additional history exists Tetanus booster 07/15/2031 07/15/2021, 05/22/2009 Pneumococcal series for age 6-64 Aged Out 08/08/2014 No longer eligible based on patient's age to complete this topic Tdap Completed 07/15/2021, 05/22/2009 Medical Devices Implanted Type Area Personal Fitness Manager Device Identifier Shelf Expiration Date Model / Serial / Lot Mesh Pelvic 24x4cm Restorelle Y Prolapse - [id number] Implanted:Qty: 1 on 07/22/2021 by Augusta Christianson MD at [facility] N/A: Pelvis [employer] 07/21/2023 [id number] / / [id number] Description:See implant shee t Sling Pelvic Obtryx Ii Halo Continence - [id number] Implanted:Qty: 1 on 07/22/2021 by Augusta Christianson MD at [facility] N/A: Pelvis [facility] [id number] / / [id number] Procedures Procedure Name Priority Date/Time Associated Diagnosis Comments EKG 12 LEAD STAT 05/25/2024 5:42 PM CDT MAGNESIUM STAT 05/25/2024 4:40 PM CDT BASIC METABOLIC PANEL STAT 05/25/2024 4:40 PM CDT CBC W PLT NO DIFF STAT 05/25/2024 4:4 0 PM CDT MR HEAD BRAIN WO STAT 05/25/2024 4:31 PM CDT HPV HIGH RISK Routine 09/30/2023 1:30 PM STEAM SHOVEL ENGINEER from Last 3 Months or Most Recently Relevant to Health Maintenance Results * EKG 12 LEAD (05/25/2024 5:42 PM CDT) Pathologist [facility] Interpretation Sinus bradycardia Low voltage QRS Borderline ECG No previous ECGs available no stemi BEYOND NOW Ventricular Rate 57 BPM BEYOND NOW Atrial Rate 57 BPM BEYOND NOW P-R Interval 166 ms BEYOND NOW QRS Duration 82 ms BEYOND NOW QT 444 ms BEYOND NOW QTc 432 ms BEYOND NOW P [place] 47 degrees BEYOND NOW R [place] 27 degrees BEYOND NOW T [place] 28 degrees BEYOND NOW 05/25/2024 5:42 PM CDT 05/25/2024 7:05 PM CDT Tyron Willams DO EKG ORD BEYOND NOW [place], [place] * CBC W PLT NO DIFF (05/25/2024 4:40 PM CDT) WHITE BLOOD COUNT 7.7 4.5 - 11.0 thou/cu mm 05/25/2024 4:47 PM CDT [facility] RED BLOOD COUNT 4.34 4.00 - 5.20 mil/cu mm 05/25/2024 4:47 PM CDT [facility] HEMOGLOBIN 13.7 12.0 - 16.0 g/dL 05/25/2024 4:47 PM CDT [facility] HEMATOCRIT 39.8 33.0 - 51.0 % 05/25/2024 4:47 PM CDT [facility] MCV 92 80 - 100 fL 05/25/2024 4:47 PM CDT [facility] MCH 31.6 26.0 - 34.0 pg 05/25/2024 4:47 PM CDT [facility] MCHC 34.4 32.0 - 36.0 g/dL 05/25/2024 4:47 PM CDT [facility] RDW 13.6 11.5 - 15.5 % 05/25/2024 4:47 PM CDT [facility] PLATELET COUNT 336 140 - 440 thou/cu mm 05/25/2024 4:47 PM CDT [facility] MPV 9.1 6.5 - 11.0 fL 05/25/2024 4:47 PM CDT [facility] Blood BLOOD SPECIMEN / Unknown Butterfly / Unknown 05/25/2024 4:40 PM CDT 05/25/2024 4:43 PM CDT Tyron Willams DO HEMATOLOGY Performing Organization Address City/[facility]/ZIP Co de Phone Number [facility] [address] [place] [address] * MAGNESIUM (05/25/2024 4:40 PM CDT) MAGNESIUM 2.2 1.6 - 2.6 mg/dL 05/25/2024 5:06 PM CDT [facility] Blood BLOOD SPECIMEN / Unknown Butterfly / Unknown 05/25/2024 4:40 PM CDT 05/25/2024 4:43 PM CDT Tyron Willams DO CHEMISTRY Performing Organization Address City/[facility]/ZIP Co de Phone Number [facility] [address] [place] [address] * (ABNORMAL) BASIC METABOLIC PANEL (05/25/2024 4:40 PM CDT) SODIUM 140 136 - 145 mmol/L 05/25/2024 5:06 PM [facility] POTASSIUM 4.1 3.5 - 5.1 mmol/L 05/25/2024 5:06 PM [facility] CHLORIDE 102 98 - 107 mmol/L 05/25/2024 5:06 PM [facility] CO2,TOTAL 28 22 - 29 mmol/L 05/25/2024 5:06 PM [facility] ANION GAP 10 5 - 18 05/25/2024 5:06 PM [facility] GLUCOSE 94 70 - 99 mg/dL 05/25/2024 5:06 PM [facility] CALCIUM 9.8 8.6 - 10.0 mg/dL 05/25/2024 5:06 PM [facility] BUN 11 6 - 20 mg/dL 05/25/2024 5:06 PM [facility] CREATININE 0.92(H) 0.50 - 0.90 mg/dL 05/25/2024 5:06 PM [facility] BUN/CREAT RATIO 12 10 - 20 5:06 PM [facility] eGFR 74(L) >90 mL/min/1.7 3m2 05/25/2024 5:06 PM [facility] Comment:As of 2021, eG FR is calculated by the CKD-EPI creatinine equation without race adjustment. ??eGFR can be influenced by muscle mass, exercise, and diet. ??The reported eGFR is an estimation only and is only applicable if the renal function is stable. Blood BLOOD SPECIMEN / Unknown Butterfly / Unknown 05/25/2024 4:40 PM CDT 05/25/2024 4:43 PM CDT Tyron Willams DO CHEMISTRY [facility] [address] [place], [place] [id number] * MR HEAD BRAIN WO (05/25/2024 4:31 [...] * HPV HIGH RISK (09/30/2023 1:30 PM STEAM SHOVEL ENGINEER) TYPE 16 Negative Negative 10/11/2023 2:10 PM STEAM SHOVEL ENGINEER [facility] TYPE 18 Negative Negative 10/11/2023 2:10 PM STEAM SHOVEL ENGINEER [facility] OTHER HIGH RISK TYPES Negative Negative 10/11/2023 2:10 PM STEAM SHOVEL ENGINEER [facility] Other (Cervical) 09/30/2023 1:30 PM STEAM SHOVEL ENGINEER 10/06/2023 4:55 PM STEAM SHOVEL ENGINEER Narrative [facility] - 10/11/2023 2:10 PM STEAM SHOVEL ENGINEER HPV types 16, 18, 31, 33, 35, 39, 45, 51, 52, 56, 58, 59, 66 and 68 DNA were undetectable or below the pre-set threshold. Methodology: Moises Soila 4800 HPV Test Doctor Unknown MICROBIOLOGY [facility] [address] [place] [address], from Last 3 Months or Most Recently [...] 6:05 AM 03/22/2012 11:08 AM Care Teams Cdl Team Truck Driver Relationship Specialty Start Date End Date Sasha Rodriguez MD [address] [place] [id number] PCP - General Internal Medicine 12/13/03
== END 2024-07-11 09:57 | disposition home or self-care (01) ==
LOC: NFLDREF 09:57
PROVIDERS: PCP Family Medicine; Visit Provider Family Medicine
DX: E78.5 Hyperlipidemia, unspecified (principal); I65.23 Occlusion and stenosis of bilateral carotid arteries
CPT/HCPCS: 80061

== ENCOUNTER 2024-10-01 08:20 | Outpatient (CLI) | payer OTHER, SELFPAY | END 2024-10-01 08:21 | disposition home or self-care (01) | LOC: NFLDREF 16:56 | PROVIDERS: PCP Family Medicine; Referring Provider Family Medicine; Visit Provider Family Medicine | DX: N02.8 Recurrent and persistent hematuria with other morphologic changes (principal); E78.5 Hyperlipidemia, unspecified | CPT/HCPCS: 80053; 80061 ==

== ENCOUNTER 2025-01-23 15:39 | Emergency (ER) | payer OTHER, SELFPAY ==
--- OUTSIDE RECORDS SUMMARY | 2025-01-23 15:42 | XMS_ITS | Clinical Summary ---
Author Organization [facility] Address [address] , [address] [place] [address] Phone Care Team Providers Care Metal Window Frame Maker Name Role Phone Jacki Humphreys Conditions or Problems Problem Name Problem Code Onset Date Status Entry Date Provider Comment Standard Description Annotate Leg numbness, right 042712176 (SNOMED CT) Active Del Eduardo MD Numbness of limbs Face and arm tingling, right 136369279 (SNOMED CT) Active Del Eduardo MD Dysesthesia of face Facial paresthesi a, right 76799459 (SNOMED CT) Active Del Eduardo MD Facial paresthesia Medications Medication Instructions Start Date Stop Date Generic Name NDC Provider ROSUVASTATIN CALCIUM 5 MG TABS TAKE ONE TABLET BY MOUTH EVERY DAY rosuvastatin 93513292378 Del Eduardo MD ESTRADIOL 0.1 MG/GM CREA INSERT 1/2 GRAM VAGINALLY NIGHTLY FOR 2 WEEKSM THEN TWICE WEEKLY, APPLY WITH FINGER. estradiol 94046263491 Del Eduardo MD PROGESTERONE 100 MG CAPS TAKE 1 TABLET BY MOUTH EVERY DAY AT BEDTIME. . progesterone micronized 10283278797 Del Eduardo MD BUPROPION HCL ER (XL) 300 MG [id number] bupropion hcl [id number] Del Eduardo MD ESTRADIOL 0.05 MG/24HR PTTW estradiol 07646027082 Del Eduardo MD ASPIRIN LOW DOSE 81 MG BANNER aspirin 60470327287 Del Eduardo MD Medications Administered No information available. 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 accountant smoking status MEDS REVIEW Done Documenta tion of current medications (procedure) Internal Other: Authorizatio n - OBS [email or web address] Yes Authoriza tion: Release of Information - Authorize [facility] - Payment and Healthcare Operations ROIAUTHOTHER Yes Authoriz ation: Release of Information - Authorize Others/Insurance - Payment and Healthcare Operations HIECONSENT Yes Consent To Release information to the Health Information Exchange (HIE) [email or web address] Yes Authorizat ion: Authorization for [facility] to leave messages, voicemail, send text messages, send emails AUTHRELHCARE Yes Authoriz ation: Release/Retrieval of Information to/from Healthcare Facilities, Pharmacy Benefit Payers and Providers AUTHPRIVPRAC Yes Authoriz ation: Notice of privacy practices AUTHBENEFIT Yes Authoriza tion: Assignment of Benefits and Payment Agreement Internal Other: Verbal Autho rization/Emergency Contact - OBS VERBAL_EMER Done Verbal au thorization and emergency contact Plan of Care Type Date Detail Pending order EMG right upper ext Pending Order exclud ed from report: Pending order EMG right upper ext Pending order Patient Instruct ions Pending order Follow up Pending order Echocardiogram C omplete with Bubble w/o Contrast Pending order Other Test Pending order Follow up Pending Order exclud ed from report: Procedures Code Procedure Name Date Entry Date ORDERS EMG right upper ext ORDERS Follow up ORDERS Patient Instructions ORDERS Echocardiogram Compl ete with Bubble w/o Contrast ORDERS Other Test [facility]-[id number] Documentation of current medicatio ns Vital Signs No information available. Immunizations No information available. Advance Directives No information available.
--- OUTSIDE RECORDS SUMMARY | 2025-01-23 15:42 | XMS_ITS | Data Portability ---
Author Organization [facility] Address [address] [place] [address] Care Team Providers Care Die Filer Name Role Phone [facility] Primary Care Provider [phone] Assessment No assessment recorded. Plan of Treatment [...] Name Description Value Unit Range Abnormal Flag Note LastModifiedBy Organization Detail LastModifiedTime 05/14/2005/14/2021 urina lysis , dipst ick pH-Status 5.5 Not Available [facility] [address], [place], [address], 05/14/2021 09:10:26 05/14/2005/14/2021 urina lysis , dipst ick Blood-Status Trace Not Available [facility] [address], [place], [address], 05/14/2021 09:10:26 05/14/20 21 05/14/2021 bladd er scan (PROC ) No observ ation record ed. BARCODE Not Available 2020 14:24:40 Result Notes None recorded. Procedures Surgical History Date Name Laterality Status Provider Name and Address Organization Details Recorded Time 09/17/20 21 Bladder Scan completed [employer] [facility] 09/17/2021 14:04:55 05/14/20 21 CystoscopyFemale completed [facility] 05/14/2021 09:16:11 05/14/20 21 Bladder Scan completed [facility] 05/14/2021 09:10:22 Colonoscopy completed [facility] 09/17/2021 14:03:29 Imaging Results Imaging [...] Updated DateTime 05/14/2021 162.56 cm 24.4 kg/m2 53019.12 [facility] 09:08:48 Date Recorded Body height Body mass index (BMI) Body weight Provider Name and Address Organization Details Last Updated DateTime 09/17/2021 162.56 cm 24 kg/m2 48243.93 g [facility] 09/17/2021 14:01:59 Social History Question Answer Notes LastModified by Organizat ion Details LastModified Time Tobacco Smoking Status Never Smoker [facility]EV[facility] 05/14/2021 09:09:06 What Is Your Level Of Alcohol Consumption? Occasional [email or web address] Information not available 09/17/2021 What Is Your Level Of Caffeine Consumption? Occasional [email or web address] Information not available 09/17/2021 Number Of Pregnancies 2 [email or web address] Information not available 09/17/2021 Number Of Vaginal Deliveries 2 [email or web address] Information not available 09/17/2021 Could You Be ? No [email or web address] Information not available 09/17/2021 What Was The Date Of Your Most Recent Tobacco Screening? 09/17/2021 [email or web address] Information not available 09/17/2021 What Is Your Relationship Status? [email or web address] Information not available 09/17/2021 Do You Use Any Illicit Or Recreational Drugs? No [email or web address] Information not available 09/17/2021 Do You Or Have You Ever Used Any Other Forms Of Tobacco Or Nicotine? No [email or web address] Information not available 09/17/2021 Sex: Unknown Functional Status None recorded. Mental Status None recorded. Family History Nothing Reported. Medical History Condition Response Sexually Transmitted Infection N Diabetes N Bleeding Disorder Y High Blood Pressure N Kidney Stones N Cancer N Lung Disease N Depression Y High Cholesterol N GERD/Acid Reflux N Heart Disease N Gynecological History Statement/Question Response Sexually Active? Y Obstetrics History GPAL:G 2 P 0 0 0 2 Type Value Living 2 Total 2 Past Encounters Encounter ID Performer Location Encounter Start Date Encounter Closed Date Diagnosis/Indication Diagnosis SNOMED-CT Code Diagnosis ICD10 Code Diagnosis Note [id number] Augusta Christianson MD [facility] [address] [place] [address] 05/14/2021 08:31:12 05/15/2021 14:37:26 Cystocele 409294976 N81.10 will check with her PCP/oncolo gist for preop for von Willebrand diseaseWe discussed options of pessary vs vaginal repair vs, sacro. She would proceed with sacro/slin gI went over risks and benefits of the procedure with risks of bleeding, infection, retention, incontinen ce, erosion, injury and pain, erosion. I gave her a handout on FDA warning on all vaginally placed meshes; answered all the questions with other options and steps of the procedure. She will stay at the hospital for 0-1 nights with 3 weeks recovery at home and no lifting more than 10 lbs for 6-8 weeks. Von WIllebrand is a risk factor for surgery/bl eeding [id number] Augusta Christianson MD _[facility] [address] [facility] [address] [place] [address] 09/17/2021 13:51:16 09/17/2021 14:24:01 Prolapse of female genital organs 80428484 N81.9 fu in 6 months Health Concerns Section Related Observation LastModified by Organization Detai ls LastModified Time None Recorded Concern Status LastModified by Organization Details LastModified Time None Recorded Advance Directives Directive None Recorded Payers Encounter Date Sequence Insurance Name Policy Number Policy Ramirez Covered Member ID Ramirez Member ID Guarantor Name 05/14/2021 1 [employer] Samnia Master [id number] Samina Evans Master 09/17/2021 1 [employer] (PPO) [employer]B Samina Cristina Master [id number] Samina Cristina Master Notes Date Note Type Note Provider Name and Address Organization Details Recorded Time 05/14/2021 text/html Samina is a pt of DR. Don here for POP.She noticed a pelvic bulge all the time; more noticeable in the past months. She Had supracervical hyst in 2009 in [place]. Unsure why cervix was left. She has had an abnl Pap since then, but Pap in February 2021 was normal, negative HPV. Urinary freq & urgency bother her, but no leakage, getting worse. She has no stress incotinence. She has Vonwillebrand disease. Very stressed about the vaginal bulge, has a hard time thinking about it.She has cystocele grade 3; mild cervical prolapse She has weakly positive stress test positive with hypermobile bladder neck. Augusta Christianson MD [address], [place], [address], [facility] 05/14/2021 10:21:50 09/17/2021 text/html sp sacro/sling o n 07/22/21 cystocele grade 3; mild cervical prolapseShe had COVID after her surgery. PVR is 120cc. Augusta Christianson MD [address] [place] [address],[address], [address], [facility] 09/17/2021 14:21:01 OBGyn Episode No OBEpisode recorded.
--- OUTSIDE RECORDS SUMMARY | 2025-01-23 15:42 | XMS_ITS | Data Portability ---
Author Organization [facility] AGRICULTURAL LOAN OFFICER, [id number] Address [address] [place] [address] Assessment Encounter Date Assessment Date Assessment LastModified by Organization Details LastModified Time 04/03/2021 04/03/2021 Total time spent in reviewing patient's history and outside records, discussion of patient's concerns, examination, interpreting test results, ordering additional tests, counseling with shared decision making, sending prescriptions and documentation was 45 minutes. [email or web address] Not available 04/16/2021 17:04:36 Plan of Treatment Reminders Order Date Submit Date Provider Last Modified By Organization Details Last Modified Time Details Appointments None recorded. Lab None recorded. Referral urologist referral 2020 021 [email or web address] Augusta Christianson MD, [address], [place] [address], [place], [address], 12:28:35 Procedures None recorded. Surgeries None recorded. Imaging None recorded. Medication Orders None recorded. Patient TargetsNo targets recorded. Patient InstructionsNo instructions recorded. Reason for Referral Urologist Referral for Cysto remigio Referring Physician: Alethea Frost AGRICULTURAL LOAN OFFICER, Encounter Date: 04/03/2021 Results Created Date Observation Date Name Description Value Unit Range Abnormal Flag Note LastModifiedBy Organization Detail LastModifiedTime Result Notes None recorded. Procedures Surgical History Date Name Laterality Status Provider Name and Address Organization Details Recorded Time 04/03/20 21 Blank Procedure [place] [address] [facility],[address], [place], [address], Formerly [facility] AGRICULTURAL LOAN OFFICER 04/16/2021 17:03:36 03/05/20 21 Date of Last Pap Smear completed [facility] Aura Pisano (TERMED) [facility] AGRICULTURAL LOAN OFFICER 04/03/2021 14:04:05 07/30/20 20 [facility] AGRICULTURAL LOAN OFFICER 04/03/2021 14:04:13 10/17/19 10 laparoscopic [place] [address] [facility],[address], [place], [address], Formerly [facility] AGRICULTURAL LOAN OFFICER 04/16/2021 16:35:00 [facility] study models [facility] 04/03/2021 14:05:35 extraction of wisdom tooth completed [facility] Aura Pisano (TERMED) [facility]/GYN 04/03/2021 14:05:43 kidney biopsy completed [facility] Aura Pisano (TERMED) [facility] AGRICULTURAL LOAN OFFICER 04/03/2021 14:05:57 Imaging Results None recorded. Procedure Notes None recorded. Medical Equipment None Reported. Allergies No known drug allergies Medications Name Sig Start Date Stop Date Status Note LastModified by Organization Details LastModified Time prednisone 20 mg tablet active Not Available Not Available Not Available bupropion HCl XL 300 mg 24 hr tablet, extended release TAKE 1 TABLET BY MOUTH EVERY DAY active Not Available Not Available No t Available bupropion HCl XL 150 mg 24 hr tablet, extended release TAKE 1 TABLET BY MOUTH EVERY DAY active Not Available Not Available No t Available Vitals Date Recorded Body height Body mass index (BMI) Body weight Systolic blood pressure Diastolic blood pressure Provider Name and Address Organization Details Last Updated DateTime 04/03/2021 162.56 cm 24.4 kg/m2 91851.84 g 118 mm[Hg] 78 mm[Hg] Bj Pisano (TERMED) [facility] AGRICULTURAL LOAN OFFICER 14:13:23 Social History None recorded. Functional Status None recorded. Mental Status None recorded. Family History Relationship Description Onset Age of this Age Resolved Age Notes LastModified by Organization Details LastModified Time Mother Depressive disorder [email or web address] Not available 2020 14:06:29 Mother Hypertensive disorder [email or web address] Not available 2020 14:07:08 Mother Osteoporosis [email or web address] Not availa ble 04/03/2021 14:07:32 Sister Depressive disorder [email or web address] Not available 2020 14:06:29 Maternal Grandfather Diabetes mellitus [email or web address] Not available 2020 14:06:45 Maternal Grandfather Osteoporosis [email or web address] Not available 0 04/03/2021 14:07:32 Maternal Grandfather Acute stroke [email or web address] Not available 0 04/03/2021 14:07:46 Maternal Aunt Hypertensive disorder ytessma Not available 2020 14:07:08 Medical History Condition Response Psych- Anxiety Disorder Y Psych- Depression Y Hematology- Bleeding Disorder Y Rheumatology- Arthritis Y Rheumatology- Autoimmune Disease Y Gynecological History Statement/Question Response History of Abnormal PAP Yes Age at Menarche: 14 HPV Test Negative Date of Last Mammogram 07/30/2020 Current Control Method Tubal Ligat ion Date of Last Pap Smear 03/05/2021 Obstetrics History GPAL:G 2 P 2 0 0 2 Type Value Full Term 2 Living 2 Total 2 Immunizations Vaccine Type Date Status Note Provider Nam e and Address Organization Details Recorded Time SARS-COV-2 (COVID-19) vaccine, UNSPECIFIED 02/25/2021 completed jB Pisano (TERMED) [facility], [place] - AGRICULTURAL LOAN OFFICER 04/03/2021 14:10:36 Past Encounters Encounter ID Performer Location Encounter Start Date Encounter Closed Date Diagnosis/Indication Diagnosis SNOMED-CT Code Diagnosis ICD10 Code Diagnosis Note [id number] ALETHEA FROST MD [id number] [facility] [address] ,[address] [place] [id number] 04/03/2021 13:35:05 04/07/2021 12:24:10 Cystocele 606887004 N81.10 - Discussed cystocele and cervical prolapse and treatment options, including: nothing, pelvic PT, pessary, surgery- Pt most interested in surgery. Will discuss with Dr. Wright if he thinks she would benefit from a consult with him or with urology- Post-void residual was normal today, no evidence of urinary retention Prolapse o f female genital organs [id number] N81.9 Health Concerns Section Related Observation LastModified by Organization Detai ls LastModified Time None Recorded Concern Status LastModified by Organization Details LastModified Time None Recorded Advance Directives Directive None Recorded Payers Encounter Date Sequence Insurance Name Policy Number Policy Ramirez Covered Member ID Ramirez Member ID Guarantor Name 04/03/2021 1 [employer] - IF[employer] (PPO) IFB Aylin Del Vallemeister [id number] Aylin A Master Notes Date Note Type Note Provider Name and Address Organization Details Recorded Time 04/03/2021 text/html Pelvic Prolapse ([facility])Reported bypatient.Referred By:self *Location:Pt unsure *Quality:bulge noted at introitus; pressure *Severity:mild *Duration:1 months * Timing:intermittent ; progressively worsens throughout the day *Context:prior vaginal deliveries; prior pelvic surgery (supracervical laparoscopic hyst) Diagnostic Testing:None thus far *Associated Signs & Symptoms:normal bowel function;difficulty with intercourses(pain, bleeding);urinary urgency(& frequency) *Modifying Factors: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 Unsure why cervix was left. She has had an abnl Pap since then, but Pap in February 2021 was normal, negative HPV. Urinary freq & urgency bother her, but no leakage. Very stressed about the vaginal bulge, has a hard time thinking about it. No rectal/GI symptoms. Very active, stands all day at work, also [place] [address] [facility],[address], [place], [address], [place] [facility] [employer] AGRICULTURAL LOAN OFFICER 04/16/2021 17:07:29 OBGyn Episode Ob Episode Information Episode Created Date Number of Fetuses Patient Bloodtype Patient rh Status Prepregnancy Weight lbs Domestic Partner Domestic Partner Phone Father Name Pug Machine Operator Status 04/03/20 21 1 CLOSED Fetus Data First Name Last Name Admitted to NICU Weight (g) Sex Living Outcome Pediatric Complications Fetus ID Race Codes Race Delivery Type F [id number] Stephen Calculation Initial Stephen Date Initial Exam Date Initial Exam Provider Initial Ultrasound Date Last Menstrual Period Date Ultra Sound Weeks Gestation 0 Eighteen To Twenty Week Stephen Update Ultra Sound Date Fundal Height At Umbil Quickening Date Ultra Sound Latest Weeks Gestation Final Stephen Confirmed By Final Stephen Confirmed Date Final Stephen Date Ultra Sound Latest Days Gestation 0 0 Menstrual History Last Menstrual Date Menses Monthly On Bcp Conception Prior Menses Frequency Hcg Plus Date Menarche Onset Age Delivery Information Delivery Date Delivery Type Labor Anesthesia Weeks Gestation Incision Type Labor Labor Length Hrs Delivered By Post Complications Tubal Sterilization Discharge Date Comments 7 Discharge Information Feeding Method Contraceptive Method Maternal HG B and HCT Levels Ob Episode Information Episode Created Date Number of Fetuses Patient Bloodtype Patient rh Status Prepregnancy Weight lbs Domestic Partner Domestic Partner Phone Father Name Pug Machine Operator Status 04/03/20 21 1 CLOSED Fetus Data First Name Last Name Admitted to NICU Weight (g) Sex Living Outcome Pediatric Complications Fetus ID Race Codes Race Delivery Type M [id number] Stephen Calculation Initial Stephen Date Initial Exam Date Initial Exam Provider Initial Ultrasound Date Last Menstrual Period Date Ultra Sound Weeks Gestation 0 Eighteen To Twenty Week Stephen Update Ultra Sound Date Fundal Height At Umbil Quickening Date Ultra Sound Latest Weeks Gestation Final Stephen Confirmed By Final Stephen Confirmed Date Final Stephen Date Ultra Sound Latest Days Gestation 0 0 Menstrual History Last Menstrual Date Menses Monthly On Bcp Conception Prior Menses Frequency Hcg Plus Date Menarche Onset Age Delivery Information Delivery Date Delivery Type Labor Anesthesia Weeks Gestation Incision Type Labor Labor Length Hrs Delivered By Post Complications Tubal Sterilization Discharge Date Comments 8 Discharge Information Feeding Method Contraceptive Method Maternal HG B and HCT Levels
--- OUTSIDE RECORDS SUMMARY | 2025-01-23 15:42 | XMS_ITS | Clinical Summary ---
Author Organization [employer] [facility] Address [address] [place] [address] Care Team Providers Care Therapy Coordinator Name Role Phone Sasha Rodriguez MD Primary Care Provider [phone] Allergies No known active allergies Medications buPROPion (WELLBUTRIN XL) 300 mg Extended-Release tablet Take 300 mg by mouth once daily. Active estradioL (ESTRACE) 0.01% (0.1 mg/g) vaginal creamIndications:C ystocele with prolapse Pea size on a finger to the vagina at bedtime for one month 42 g 1 11:30 AM CDT 07/22/20 21 Active acetaminophen-code ine (TYLENOL #3) 300-30 mg per tabletIndications: Cystocele with prolapse Take 1 Tablet by mouth every 6 hours if needed for Pain. Max acetaminophen dose: 4000mg in 24 hrs. 10 Tablet 1 10:12 AM CDT 07/23/20 21 Active ondansetron (ZOFRAN ODT) 8 mg disintegrating tabletIndications: Cystocele with prolapse Place 1 Tablet (8 mg) on the tongue every 8 hours if needed for Nausea/Vomiting. 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 Not on file Not on file Not on file Obstetrics History Last Filed Vital Signs Vital Sign Reading Time Taken Comments Blood Pressure 168/85 05/25/2024 3:38 PM CDT Pulse 65 05/25/2024 3:38 PM CDT Temperature 36.7 C (98.1 F) 05/25/2024 3:38 PM CDT Respiratory Rate 16 05/25/2024 3:38 PM CDT [...] age 18+ 1986 Hepatitis C screening for ag e 18-79 1986 Colonoscopy through age 75 2013 Lipids for age 45-75 2013 Mammogram for age 45-75 2013 Pneumococcal series for age 50+ (2 of 2 - PCV) 08/08/2015 08/08/2014 Zoster (shingles) series for age 50+ (1 of 2) 2018 COVID-19 vaccine series ( - season) 2024 02/25/2021, 02/04/2021 Influenza Vaccine (Season Ended) 2025 07/15/2021, 08/06/2020, 08/08/2014 Pap test for age 21-65 09/30/2026 , 09/30/2023, 03/05/2021, Additional history exists Tetanus booster 07/15/2031 07/15/2021, 05/22/2009 Tdap Completed 07/15/2021, 05/22/2009 Medical Devices Implanted Type Area Habilitation Worker Device Identifier Shelf Expiration Date Model / Serial / Lot Mesh Pelvic 24x4cm Restorelle Y Prolapse - [id number] Implanted:Qty: 1 on 07/22/2021 by Augusta Christianson MD at [facility] N/A: Pelvis [employer] 07/21/2023 [id number] / / [id number] Description:See implant shee t Sling Pelvic Obtryx Ii Halo Continence - [id number] Implanted:Qty: 1 on 07/22/2021 by Augusta Christianson MD at [facility] N/A: Pelvis [facility] [id number] / / [id number] Procedures Procedure Name Priority Date/Time Associated Diagnosis Comments HPV HIGH RISK Routine 09/30/2023 1:30 PM SEASONAL CLERK from Last 3 Months or Most Recently Relevant to Health Maintenance Results * HPV HIGH RISK (09/30/2023 1:30 PM SEASONAL CLERK) TYPE 16 Negative Negative 10/11/2023 2:10 PM SEASONAL CLERK [facility] TYPE 18 Negative Negative 10/11/2023 2:10 PM SEASONAL CLERK [facility] TR[facility] LABORATORY OTHER HIGH RISK TYPES Negative Negative 10/11/2023 2:10 PM SEASONAL CLERK [facility] TR[facility] LABOR[facility]ORY Other (Cervical) 09/30/2023 1:30 PM SEASONAL CLERK 10/06/2023 4:55 PM SEASONAL CLERK Narrative [facility] - 10/11/2023 2:10 PM SEASONAL CLERK HPV types 16, 18, 31, 33, 35, 39, 45, 51, 52, 56, 58, 59, 66 and 68 DNA were undetectable or below the pre-set threshold. Methodology: [employer] Soila 4800 HPV Test us Doctor Unknown MICROBIOLOGY Final Result [facility] [address] [place] [id number], from Last 3 Months or Most Recently Relevant to Health Maintenance Insurance [facility] [employer]DIV[employer] FAMILY [employer] Advance Directives * Full Code (Latest Code Status on File) Date Activated Date Inactivated Comments 07/22/2021 5:50 AM 2021 7:23 PM Question Answer Comments Code Status Discussion: Not Discussed * Full Code Date Activated Date Inactivated Comments 03/22/2012 11:08 AM 03/23/2012 4:00 PM * Full Code Date Activated Date Inactivated Comments 03/22/2012 6:05 AM 03/22/2012 11:08 AM Care Teams Therapy Coordinator Relationship Specialty Start Date End Date Sasha Rodriguez MD [address] [place] [id number] PCP - General Internal Medicine 12/13/03
[2025-01-23 16:08] VITALS: BP 170/83; PULSE 78; RESP 16; TEMP 36.6; O2SAT 97; BMI 24.5
--- NOTE | 2025-01-23 16:35 | ED_ITS ---
HPI - General Adult General Time Seen by Provider: 16:35 Date Seen: 01/23/25 Chief complaint: GI Bleed Stated complaint: would rather talk privately to the nurse/dr Time Seen by Provider: 01/23/25 16:14 Source: patient, RN notes reviewed and old records reviewed Mode of arrival: ambulatory Limitations: no limitations History of Present Illness HPI narrative: This 54-year-old female coming with a bleeding painful lump on her rectum. Is been there since Tuesday. She states she does not have constipation, rarely suffers from this. She has not been straining. Does not typically have problems with hemorrhoids. She denies any other urinary symptoms. She does have von Willebrand's, had hemorrhage with significant blood loss before this was known. She has had surgeries done but they have referred her to [facility] for such things like her hysterectomy. Did pull up her epic record, she had a sacrocolpopexy there at [facility] in 2020, received 19 mcg DDAVP during that procedure. She is not on any chronic medications. She had some issues with some paresthesias on her right side which got worked up by Neurology. She was on an aspirin for that but was getting petechial hemorrhages. She subsequently stop the aspirin, is on no chronic medicines for her von Willebrand's. She is noting that there is been a lot of bleeding from this rectal lesion. She can feel it along the anus. It is painful. No fevers. Related Data Home Medications ?Medication ?Instructions ?Recorded ?Confirmed mag carb,baqr-styca-lhqc-taur-inos g PO 02/01/23 10/26/24 350 mg-250 mg/7.8 gram oral powder (ing Day) estradiol 0.01% (0.1 mg/gram) 0.5 g vaginal 2XW PRN 05/30/24 01/23/25 vaginal cream (Estrace) fezolinetant 45 mg tablet (Veozah) 45 mg PO DAILY 01/23/25 01/23/25 Previous Rx's ?Medication ?Instructions ?Recorded aspirin 81 mg tablet,delayed 81 mg PO QDAY #360 tabs 05/30/24 release (Tracie Low Dose Aspirin) fezolinetant 45 mg tablet 45 mg PO QDAY #30 tabs 09/07/24 bupropion HCl 300 mg 24 hr tablet, 300 mg PO DAILY #90 tabs 10/26/24 extended release gabapentin 100 mg capsule 100 - 200 mg (1 - 2 x 100 mg) PO 10/26/24 QPM #90 caps Allergies Allergy/AdvReac Type Severity Reaction Status Date / Time No Known Allergies Allergy Unknown Unknown Verified 01/23/25 16:02 Review of Systems Narrative: As per HPI. [facility] Medical History Carotid stenosis, bilateral (06/01/24) ?I65.23 - Occlusion and stenosis of bilateral carotid arteries (ICD-10) Abnormal cervical Papanicolaou smear (2015) ?R87.619 - Unspecified abnormal cytological findings in specimens from cervix uteri (ICD-10) Raynauds syndrome (~2011) ?I73.00 - Raynaud's syndrome without gangrene (ICD-10) Von Willebrand factor (vWF) inhibitor disorder (07/05/12) ?D68.318 - Other hemorrhagic disorder due to intrinsic circulating anticoagulants, antibodies, or inhibitors (ICD-10) Posttraumatic stress disorder ?F43.10 - Post-traumatic stress disorder, unspecified (ICD-10) Inflammatory polyarthropathy (08/21/12) ?M06.4 - Inflammatory polyarthropathy (ICD-10) IgA nephropathy (1979) ?N02.8 - 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 (ICD-10) Depression ?F32.A - Depression, unspecified (ICD-10) Anxiety (2015) ?F41.9 - Anxiety disorder, unspecified (ICD-10) Antinuclear factor positive (1986) ?R76.8 - Other specified abnormal immunological findings in serum (ICD-10) Surgical History History of vaginal delivery History of tubal ligation (1996) ?Z98.51 - Tubal ligation status (ICD-10) History of sacrocolpopexy (2020) ?Z98.890 - Other specified postprocedural states (ICD-10) History of mandibular surgery (1981) ?Z98.890 - Other specified postprocedural states (ICD-10) History of hysterectomy (07/05/12) ?Z90.710 - Acquired absence of both cervix and uterus (ICD-10) History of endometrial ablation (2017) ?Z98.890 - Other specified postprocedural states (ICD-10) History of colposcopy with cervical biopsy (2016) ?Z98.890 - Other specified postprocedural states (ICD-10) History of bilateral salpingectomy (2013) ?Z90.79 - Acquired absence of other genital organ(s) (ICD-10) Family History Father Alcohol dependence Mother Alcohol dependence Cervical cancer Depression Ovarian cancer Family/Other Alcohol dependence Depression Paternal Grandfather Alcohol dependence Colon cancer Stroke Daughter Anorexia nervosa Maternal Grandfather Diabetes Stroke Paternal Grandmother Depression Other Bleeding disorder Kidney disease Osteoporosis Uterine cancer Social History Narrative: , 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, 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 Non-smoker Social drinker 4-5 week Stress due to family tension Uninsured Does not have a regular exercise regimen What is your current living situation?: I presently have a place to live Problems where you live: declined to answer In the past 12 months, utilities in danger of being shut off: no In past 12 months, lack of transportation kept you from medical appts, meetings, work, or getting things needed for daily living: no In the past 12 mos, have been you worried that your food would run out before you had money to buy more?: never true In the past 12 mos, the food you bought just didn't last and you didn't have money to buy more?: never true Smoking Status: Never smoker Do you use any of these nicotine containing products: None Second hand tobacco smoke exposure: No How often do you have a drink containing alcohol: never AUDIT-C Alcohol total score: 0 Non-prescribed substance use: denies use How often does anyone, including family, friends and others, physically hurt you : never How often does anyone, including family, friends and others, insult or talk down to you: sometimes How often does anyone, including family, friends and others, threaten you with harm: never How often does anyone, including family, friends and others, scream or curse at you: never service: No Health Related Social Needs: Other personal risk factors, not elsewhere classified (Z91.89) Exam Const: Vital Signs, click to edit/add: Vital Signs - 24 hr 01/23/25 16:08 Temperature 98 F Pulse Rate [Pulse Oximeter] 78 Respiratory Rate 16 Blood Pressure [Ri ght Upper Arm] 170/83 H Pulse Oximetry 97 Oxygen Delivery Me thod Room Air Patient is alert, interactive, no apparent distress. Along the right side of the anus, has a thrombosed hemorrhoid and there is denuded area of the epithelium where you can see the clotted blood within the hemorrhoid. Documenting provider has reviewed patient's vital signs: yes Course Course ED Course: This patient does have von Willebrand's, do feel that if we need to evacuate this thrombosed hemorrhoid and have success in control bleeding that we will give IV desmopressin, have ordered 20 mcg dose. Will also check a baseline basic metabolic panel and CBC to see where hemoglobin is, ensure no significant blood loss up to this point. She is not actively hemorrhaging or extravasated in during my examination. Will likely apply a some injectable lidocaine with epinephrine for some anesthesia as well as hemostasis. Reevaluation(s) Time of Reevaluation #1: 17:47 Reevaluation #1: Nursing staff came to reports that patient only received 12 mcg of the 20 of the DDVAP, despite going very slow, the initial 12 mcg were over 5 minutes, patient developed flushing, lightheadedness, became intolerant. Her vitals remained stable. Did order a full L of IV fluids for her. Will let her rest a little bit in then plan on evacuating the thrombosed hemorrhoid. Hopefully 12 mcg should be sufficient for this more minor procedure. Time of Reevaluation #2: 18:10 Reevaluation #2: 2 mL of 1% lidocaine with epinephrine was infused around the opening where the clot was in the hemorrhoid. She had some blood on the panty liner in her underwear, small spot, no active extravasation seen. A curved Margareth was used to bluntly dissect out the clot, this came out and block. There was no active bleeding noted, the cavity was inspected in no further clot. The skin deficit was maybe about 4 mm in length, was left to heal by secondary intention. Patient tolerated this well. We will observe her just to make sure she is not actively bleeding. She feels much better at this time. Time of Reevaluation #3: 18:29 Reevaluation #3: Patient is doing fine, plan will discharge to home at this time. Vital Signs Vital signs: Initial Vital Signs Temperature 98 F 01/23/25 16:08 Temperature Source Temporal Artery Scan 01/23/25 16:08 Pulse Rate 78 01/23/25 16:08 Respiratory Rate 16 01/23/25 16:08 Blood Pressure 170/83 H 01/23/25 16:08 Blood Pressure Mean 112 H 01/23/25 16:08 Pulse Oximetry 97 01/23/25 16:08 Oxygen Delivery Method Room Air 01/23/25 16:08 Vital Signs Temperature 98 F 01/23/25 16:08 Pulse Rate 78 01/23/25 16:08 Respiratory Rate 16 01/23/25 16:08 Blood Pressure 170/83 H 01/23/25 16:08 Pulse Oximetry 97 01/23/25 16:08 Oxygen Delivery Method Room Air 01/23/25 16:08 Temperature 98 F 01/23/25 16:08 Pulse Rate 78 01/23/25 16:08 Respiratory Rate 16 01/23/25 16:08 Blood Pressure 170/83 H 01/23/25 16:08 Pulse Oximetry 97 01/23/25 16:08 Oxygen Delivery Method Room Air 01/23/25 16:08 Medications Administered Medications: Discontinued Medications Generic Name Dose Route Start Last Admin Trade Name Freq PRN Reason Stop Dose Admin Desmopressin Acetate 20 mcg 01/23/25 17:05 01/23/25 17:38 Desmopressin Acetate 4 Mcg/Ml Inj IVP 01/23/25 17:06 20 mcg ONCE ONE Administration Medical Decision Making Lab Data Lab results reviewed: Yes I reviewed the patient's lab results Labs: Lab Results 01/23/25 Range/Units 17:12 WBC 6.47 (4.50-11.00) K/uL RBC 4.09 (4.00-5.20) m/uL Hgb 12.0 (12.0-16.0) gm/dL Hct 36.4 (33.0-51.0) % MCV 89 (80-100) fL MCH 29 (26-34) pg MCHC 33 (32-36) gm/dL RDW Coeff of Martín 12.9 (11.5-15.5) % Plt Count 290 (140-440) K/uL Neut % (Auto) 60.8 (42.0-72.0) % Lymph % (Auto) 28.9 (20-44) % Cocke % (Auto) 7.3 (0.0-11.0) % Eos % (Auto) 2.5 (0.0-7.0) % Baso % (Auto) 0.5 (0.0-3.0) % Neut # (Auto) 3.94 (1.7-7.0) K/uL Lymph # (Auto) 1.87 (0.90-2.90) K/uL Cocke # (Auto) 0.50 (0.00-0.90) K/UL Eos # (Auto) 0.16 (0.00-0.50) K/uL Baso # (Auto) 0.03 (0.00-0.30) K/uL Abs Immat Gran (auto) 0.00 (0.00-0.30) K/uL Imm/Tot Granulo (auto) 0.0 % Sodium 137 (135-149) mmol/L Potassium 4.3 (3.6-5.1) mmol/L Chloride 102 (96-114) mmol/L Carbon Dioxide 28 (20-32) mmol/L Anion Gap 7 (7-15) mEq/L BUN 21 (7-30) mg/dL Creatinine 0.8 (0.5-1.5) mg/dL Estimated Creat Clear 67.81 Estimated GFR 86 ml/min Glucose 84 (60-115) mg/dL Calcium 9.7 (8.4-10.6) mg/dL Discharge Plan Discharge Clinical Impression: External hemorrhoid, thrombosed, Von Willebrand factor inhibitor disorder Patient Disposition: Home, Self-Care Condition: Stable Instructions: Hemorrhoids (ED) Additional Instructions: Use care with wiping, may want to get some wet wipes, sensitive skin or non perfumed. Do Sitz baths to help keep area clean. Can use the gauze to place by a the anal area to help minimize bleeding. This should heal up over 1-2 weeks. If there are ongoing issues, do recommend follow up in clinic, may need to see the general surgeon if ongoing issues. It is important to not strain, keep stools soft but formed, can use MiraLax for this goal if needed. Activity Level: Activity as Tolerated Prescriptions: No Action fezolinetant 45 mg tablet 45 mg PO QDAY Qty: 30 12RF bupropion HCl 300 mg tablet extended release 24 hr 300 mg PO DAILY Qty: 90 3RF gabapentin 100 mg capsule 100 - 200 mg PO QPM Qty: 90 3RF Calming Day 350-250 mg/7.8 gram powder PO estradiol [Estrace] 0.01 % (0.1 mg/gram) cream 0.5 g vaginal 2XW PRN Rx Instructions: Use nightly for 2 weeks, then twice weekly. May apply with finger. aspirin [Tracie Low Dose Aspirin] 81 mg tablet,delayed release (DR/EC) 81 mg PO QDAY Qty: 360 0RF Veozah 45 mg tablet 45 mg PO DAILY Follow Up/Referrals: Maria Victoria Harvey MD [Primary Care Provider] - Stand Alone Forms[facility] Info Instructions
[2025-01-23 17:20] LABS: Basophils Absolute Auto 0.03 K/uL (0.00-0.30); Basophils Percent Auto 0.5 % (0.0-3.0); Eosinophils Absolute Auto 0.16 K/uL (0.00-0.50); Eosinophils Percent Auto 2.5 % (0.0-7.0); Hematocrit 36.4 % (33.0-51.0); Lymphocytes Absolute Auto 1.87 K/uL (0.90-2.90); Lymphocytes Percent Auto 28.9 % (20-44); Mean Corpuscular HGB Conc 33 gm/dL (32-36); Mean Corpuscular Hemoglobin 29 pg (26-34); Mean Corpuscular Volume 89 fL (80-100); Monocytes Percent Auto 7.3 % (0.0-11.0); Neutrophils Absolute Auto 3.94 K/uL (1.7-7.0); Neutrophils Percent Auto 60.8 % (42.0-72.0); Platelet Count* 290 K/uL (140-440); RDW Coefficient of Variation % 12.9 % (11.5-15.5); Red Blood Count 4.09 m/uL (4.00-5.20); White Blood Count* 6.47 K/uL (4.50-11.00)
[2025-01-23 17:27] LABS: Slide Review Reflex No
[2025-01-23 17:31] LABS: Chloride* 102 mmol/L (96-114); Sodium* 137 mmol/L (135-149)
[2025-01-23 17:32] LABS: Potassium* 4.3 mmol/L (3.6-5.1)
[2025-01-23 17:34] LABS: Blood Urea Nitrogen* 21 mg/dL (7-30); Creatinine* 0.8 mg/dL (0.5-1.5); Est. Creatinine Clearance* 67.81; Estimated Glomerular Filt Rate 86 ml/min
[2025-01-23 17:35] LABS: Anion Gap 7 mEq/L (7-15); Calcium* 9.7 mg/dL (8.4-10.6); Carbon Dioxide* 28 mmol/L (20-32); Glucose* 84 mg/dL (60-115)
[2025-01-23] MEDS: DESMOPRESSIN ACETATE 4 MCG/ML inj 20 MCG IVP (17:38)
--- OUTSIDE RECORDS SUMMARY | 2025-01-23 17:47 | XMS_ITS | Clinical Summary ---
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 Role Phone Jacki Humphreys Conditions or Problems Problem Name Problem Code Onset Date Status Entry Date Provider Comment Standard Description Annotate Leg numbness, right 261426249 (SNOMED CT) Active Del Eduardo MD Numbness of limbs Face and arm tingling, right 011284273 (SNOMED CT) Active Del Eduardo MD Dysesthesia of face Facial paresthesi a, right 86631546 (SNOMED CT) Active Del Eduardo MD Facial paresthesia Medications Medication Instructions Start Date Stop Date Generic Name NDC Provider ROSUVASTATIN CALCIUM 5 MG TABS TAKE ONE TABLET BY MOUTH EVERY DAY rosuvastatin [id number] Del Eduardo MD ESTRADIOL 0.1 MG/GM CREA INSERT 1/2 GRAM VAGINALLY NIGHTLY FOR 2 WEEKSM THEN TWICE WEEKLY, APPLY WITH FINGER. estradiol [id number] Del Eduardo MD PROGESTERONE 100 MG CAPS TAKE 1 TABLET BY MOUTH EVERY DAY AT BEDTIME. . progesterone micronized [id number] Del Eduardo MD BUPROPION HCL ER (XL) 300 MG [id number] bupropion hcl [id number] Del Eduardo MD ESTRADIOL 0.05 MG/24HR PTTW estradiol [id number] Del Eduardo MD ASPIRIN LOW DOSE 81 MG [facility] aspirin [id number] Del Eduardo MD Medications Administered No information available. 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 Immunizations No information available. Advance Directives No information available.
--- OUTSIDE RECORDS SUMMARY | 2025-01-23 17:47 | XMS_ITS | Clinical Summary ---
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 Not on file Not [...] 07/15/2021, 05/22/2009 Medical Devices Implanted 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 Device Identifier Shelf Expiration Date Model / Serial / Lot Mesh Pelvic 24x4cm Restorelle Y Prolapse - [id number] Implanted:Qty: 1 on 07/22/2021 by Augusta Christianson MD at [facility] N/A: Pelvis [employer] 07/21/2023 [id number] / / [id number] Description:See implant shee t Sling Pelvic Obtryx Ii Halo Continence - [id number] Implanted:Qty: 1 on 07/22/2021 by Augusta Christianson MD at [facility] N/A: Pelvis [facility] [id number] / / [id number] Procedures Procedure Name Priority Date/Time Associated Diagnosis Comments HPV HIGH RISK Routine 09/30/2023 1:30 PM PEDIATRIC CRITICAL CARE NURSE from Last 3 Months or Most Recently Relevant to Health Maintenance Results * HPV HIGH RISK (09/30/2023 1:30 PM PEDIATRIC CRITICAL CARE NURSE) TYPE 16 Negative Negative 10/11/2023 2:10 PM PEDIATRIC CRITICAL CARE NURSE [facility] TYPE 18 Negative Negative 10/11/2023 2:10 PM PEDIATRIC CRITICAL CARE NURSE [facility] OTHER HIGH RISK TYPES Negative Negative 10/11/2023 2:10 PM PEDIATRIC CRITICAL CARE NURSE [facility] Other (Cervical) 09/30/2023 1:30 PM PEDIATRIC CRITICAL CARE NURSE 10/06/2023 4:55 PM PEDIATRIC CRITICAL CARE NURSE Narrative [facility] - 10/11/2023 2:10 PM PEDIATRIC CRITICAL CARE NURSE HPV types 16, 18, 31, 33, 35, 39, 45, 51, 52, 56, 58, 59, 66 and 68 DNA were undetectable or below the pre-set threshold. Methodology: [employer] 4800 HPV Test us Doctor Unknown MICROBIOLOGY Final Result [facility] [address] [place] [address], from Last 3 Months or Most Recently Relevant to Health Maintenance Insurance [facility] Advance Directives * Full Code (Latest Code Status on File) Date Activated Date Inactivated Comments 07/22/2021 5:50 AM 2021 7:23 PM Question Answer Comments Code Status Discussion: Not Discussed * Full Code Date Activated Date Inactivated Comments 03/22/2012 11:08 AM 03/23/2012 4:00 PM * Full Code Date Activated Date Inactivated Comments 03/22/2012 6:05 AM 03/22/2012 11:08 AM Care Teams Manager Of Construction Relationship Specialty Start Date End Date Sasha Rodriguez MD [address] [place] [id number] PCP - General Internal Medicine 12/13/03
[2025-01-23 18:02] VITALS: PULSE 88; O2SAT 97
[2025-01-23 18:15] VITALS: PULSE 79; O2SAT 96
[2025-01-23 18:24] VITALS: BP 109/65; PULSE 74; O2SAT 97
--- NOTE | 2025-01-23 18:46 | ED.NURSE ---
1744- efraín was given Desmopressin. After 12mcg administered, she became flushed and felt dizzy. She was not given the remaining 8mcg. She was given a 1 liter bolus of normal saline.
== END 2025-01-23 18:45 | disposition home or self-care (01) ==
PROVIDERS: Emergency Provider Family Medicine; PCP Family Medicine
DX: K64.8 Other hemorrhoids (principal); D68.00 Von Willebrand disease, unspecified
CPT/HCPCS: 46320; 36415; 80048; 85025; 96374; 99283; 99284; J2597

== ENCOUNTER 2025-01-25 09:45 | Outpatient (CLI) | payer OTHER, SELFPAY | END 2025-01-25 09:46 | disposition home or self-care (01) | LOC: NFLDREF 01-29 01:52 | PROVIDERS: PCP Family Medicine; Referring Provider Family Medicine; Visit Provider Family Medicine | DX: E78.5 Hyperlipidemia, unspecified (principal); R20.2 Paresthesia of skin; I65.23 Occlusion and stenosis of bilateral carotid arteries; R79.89 Other specified abnormal findings of blood chemistry; Z11.59 Encounter for screening for other viral diseases | CPT/HCPCS: 80076; 82977; 86803 ==